=== PATIENT | female | born 1980 | race Caucasian/White ===

== ENCOUNTER 2016-06-02 15:42 | Inpatient (IN) | payer BC, OTHER ==
[~2016-06-02] VITALS: Ht 170.2 cm; Wt 80.1 kg
[~2016-06-02 15:42] MED LIST: BIRTH CONTROL PILL; BTR10SP2 NS; FERR-74 PO; HYDR-707 PO; MEDROXYPROGESTERONE; OXC10TCR PO; OXYC-202 PO; PRM25T PO; SERT20OR; SUMA100T2 PO; TPR25T PO
--- OUTSIDE RECORDS SUMMARY | 2016-06-02 15:48 | XMS REPORT | Continuity of Care Document ---
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 Medications Current Home Medications Medication Dose Units Route Directions Days/Qty Instructions Start Date Ferrous Sulfate 325 Mg 325 Mg Oral Twice A Day 01/04/16 Oxycodone Hcl/Acetaminophen 1 Each 1-2 Tab Oral Every 4HRS as needed for Pain 30 01/07/16 Past Home Medications Medication Directions Ordered Status Acetaminophen/Hydrocodone Bitart 1 Each Tablet, 1 Each Oral Q 4 - 6 Hr Prn Discontinued Promethazine Hcl 25 Mg Tablet, 1 Tab Oral Four Times Daily 04/01/09 Discontinued Sertraline Hcl 20 Mg/Ml Oral.conc., 07/28/09 Discontinued [Depo Provra] , 07/28/09 Discontinued Acetaminophen/Hydrocodone Bitart 1 Each Tablet, 1 Each Oral Q 4 - 6 Hr Prn Discontinued Promethazine Hcl 25 Mg Tablet, 1 Tab Oral Every 6 Hours 07/28/09 Discontinued Topiramate 25 Mg Tab, 50 Mg Oral Twice A Day 02/08/13 Discontinued Oxycodone Hcl (Oxycontin) 10 Mg Tab, 0.5 Tab Oral Every 6 Hours 02/08/13 Discontinued Sumatriptan Succinate 100 Mg Tablet, 0 Oral As Directed 02/08/13 Discontinued [ Control Pill] , Daily 02/08/13 Discontinued Butorphanol Tartrate 10 Mg/Ml Can, 1 [place] Nasal As Directed as needed Discontinued Social History Social History Problem Response Recorded Date/Time Alcohol Use Rarely Uses 02/08/2013 10:19am Recreational Drug Use No 02/08/2013 10:19am Recent Foreign Travel No 01/07/2016 11:05am Recent Infectious Disease Exposure No 01/07/2016 11:05am Smoking Status Never a Smoker 01/07/2016 11:05am Query Response Start Date Stop Date Smoking Status Never a Smoker Hospital Discharge Instructions Patient Instructions Physician Instructions New, Converted or Re-Newed RX: RX on Chart Patient Instructions: As directed Return to The Hospital For: As directed Discharge Diet: No Restrictions Activity as Tolerated: No Call to make follow up appt. for patient in 2 weeks. Care Plan Patient Instructions:: As directed Plan of Care Discharge Date 01/07/16 3:11pm Instructions/Education Provided ANESTHESIA INSTRUCTIONS POSTOP Dilation and Curettage (DC) Hysteroscopy (DC) Prescriptions See Medication Section Functional Status No functional status results. Allergies, Adverse Reactions, Alerts No known allergies. Immunizations No immunization records. Vital Signs Acute Vital Signs Vital Response Date/Time Temperature (Fahrenheit) 97.5 degrees F (97.6 - 99.5) 01/07/2016 2:50pm Temperature (Calculated Celsius) 36.54918 degrees C (36.4 - 37.5) 01/07/2016 2:50pm Temperature Source Temporal 01/07/2016 2:50pm Pulse Rate (adult) 96 bpm (60 - 90) 01/07/2016 2:50pm Respiratory Rate 16 bpm (12 - 24) 01/07/2016 2:50pm O2 Sat by Pulse Oximetry 99 % (88 - 100) 01/07/2016 2:50pm Blood Pressure 129/85 mm Hg 01/07/2016 2:50pm Blood Pressure Mean 102 mm Hg 01/07/2016 11:05am Pain Numeric Pain Scale 0-No Pain 01/07/2016 3:00pm Pain Intensity 0 01/07/2016 2:50pm Height (Feet) 5 feet 01/07/2016 11:05am Height (Inches) 6.00 inches 01/07/2016 11:05am Height (Calculated Centimeters) 167.559276 cm 01/07/2016 11:05am Weight (Pounds) 174 pounds 01/07/2016 11:05am Weight (Ounces) 6.3 oz 01/07/2016 11:05am Weight (Calculated Grams) 95822.675 gm 01/07/2016 11:05am Weight (Calculated Kilograms) 79.272949 kilograms 01/07/2016 11:05am Calculated BMI 28.95 01/07/2016 11:05am Capillary Refill Capillary Refill Less Than 3 Seconds 01/07/2016 11:05am Results Pending Laboratory Results Test Name Collection Date/Time Pending Microbiology Results Procedure Source Collection Date/Time Procedures Procedure Status Date Provider(s) Hysteroscopy with dilation and curettage of uterus Completed 01/07/16 TAMI BUCK MD Encounters Encounter Location Arrival/Admit Date Discharge/Depart Date Attending Provider Departed [facility] 01/07/16 10:45am 01/07/16 3:11pm TAMI BUCK MD Departed Clinic [facility] 01/04/16 11:18am 01/04/16 11: 55am TAMI BUCK MD
[2016-06-02] MEDS ORDERED: IBUP200C75 PO (16:21)
[2016-06-02] MEDS ORDERED: ACET325T38 PO (16:21)
--- NOTE | 2016-06-02 17:25 | ED GU-Female ---
General Chief Complaint: Abdominal/GI Problems Stated Complaint: ABD PAIN/VAGINAL BLEEDING Nursing Triage Note: PT REPORTS LOWER ABD CRAMPING STARTING SUNDAY. ALSO C/O VAGINAL BLEEDING. PT HAD D&C IN DECEMBER FOR SIMILAR SYMPTOMS. Nursing Sepsis Screen: No Definite Risk Source: patient, spouse Exam Limitations: no limitations History of Present Illness Time seen by provider: 17:25 Initial Comments 35 yo female patient presents to the ED with complaints of lower abdominal cramping/discomfort since Sunday. Patient reports pain and vaginal bleeding began in early April. She contacted Dr. Mueller and was given a depo- provera in April. Patient states she used only 1 pad today. Reports increased lower abdominal cramping today. Denies fever, chills, nausea, vomiting. Does c/o dysuria beginning today. Patient had similar symptoms during the summer and had a D&C by Dr. Mueller. Patient has an appointment with Dr. Brown June 12. Timing/Duration: other (chronic bleeding and lower abdominal discomfort since the beginning of April. vaginal bleeding today improved. increased supapubic pain. ) Location: suprapubic Radiation: none Activities at Onset: none Prior Genitourinary Problems: similar symptoms Modifying Factors: Worsens With Palpation, Worsens With Urinating Allergies and Home Medications Allergies Coded Allergies: No Known Drug Allergies (Verified , 10/12/08) Home Medications Acetaminophen 325 Mg Tablet 325 MG PO (Reported) Ibuprofen 200 Mg Capsule 200 MG PO (Reported) Ketorolac Tromethamine 10 Mg Tablet #15 10 MG PO TID PRN PRN PAIN Prescribed by: ROSIBEL GUERRIER on 06/04/16 1354 Constitutional: No chills, No dizziness, No fever, No malaise Respiratory: no symptoms reported Cardiovascular: no symptoms reported Gastrointestinal: abdominal painNo constipation, diarrhea (beginning this AM. )No loss of appetite, No nausea, No vomiting Genitourinary: see HPI dysuriadenies frequency, denies flank pain, denies pain : No Musculoskeletal: no symptoms reported Skin: No change in color, No lesions Psychiatric/Neurological: No Symptoms Reported Hematologic/Lymphatic: See HPI All Other Systemes Reviewed Negative Unless Noted: Yes (Negative excepted noted.) Past Avsbmsg-Roypcu-Sjbopo Hx Patient Social History Alcohol Use: Rarely Uses Recreational Drug Use: No Smoking Status: Never a Smoker Recent Foreign Travel: No Contact w/Someone Who Travel: No Recent Infectious Disease Expo: No Recent Hopitalizations: No Physical Abuse Screen: No Sexual Abuse: No Immunizations Up To Date Date of Influenza Vaccine: Mar 14, 2016 Seasonal Allergies Seasonal Allergies: Yes Surgeries HX Surgeries: Yes (FOOT SX, D&C) Surgeries: Appendectomy, Gallbladder Respiratory Hx Respiratory Disorders: No Cardiovascular Hx Cardiac Disorders: No Neurological Hx Neurological Disorders: Yes Neurological Disorders: Headaches /Migraines Reproductive System Hx Reproductive Disorders: Yes (DUB, UTERINE POLYPS) Genitourinary Hx Genitourinary Disorders: No Gastrointestinal Hx Gastrointestinal Disorders: No Musculoskeletal Hx Musculoskeletal Disorders: No Endocrine Hx Endocrine Disorders: No HEENT HX ENT Disorders: No Cancer Hx Cancer: No Psychosocial Hx Psychiatric Problems: No Integumentary HX Skin/Integumentary Disorder: No Blood Transfusions Hx Blood Disorders: Yes (ANEMIA) Reviewed Nursing Assessment Reviewed/Agree w Nursing PMH: Yes Family Medical History Significant Family History: No Pertinent Family Hx Physical Exam Vital Signs Capillary Refill : Less Than 3 Seconds General Appearance: WD/WN no apparent distress HEENT: PERRL/EOMI pharynx normal other (oral mucosa dry) Neck: supple normal inspection Cardiovascular: regular rate, rhythm no murmur Respiratory: lungs clear normal breath sounds no respiratory distress Gastrointestinal: normal bowel sounds soft no organomegalyNo distended, guarding (suprapubic)No rebound, tenderness (generalized tenderness with greatest tenderness suprapubic) Back: normal inspection no CVA tenderness Extremities: no pedal edema normal capillary refill Neurologic/Psychiatric: alert normal mood/affect oriented x 3 Skin: normal color warm/dry Progress/Results/Core Measures Results/Orders Lab Results My Orders Medications Given in ED Vital Signs/I&O Blood Pressure Mean: 98 Point of Care Testing Urine -Bedside: Negative Diagnostic Imaging Diagonstic Imaging: Ultrasound Plain Films/CT/US/NM/MRI: pelvis Comments FINDINGS: The uterus measures 8.1 x 6.3 x 5.0 cm. Increased echogenicity of the endometrial canal which measures up to 19 mm in thickness consistent with blood products. No uterine masses are identified. The right ovary measures 3.3 x 2.1 x 1.9 cm. The left ovary measures 3.8 x 2.8 x 2.1 cm. Both ovaries contain normal appearing follicles. Normal flow by color Doppler within the ovaries. There is a small amount of free fluid in the pelvis. IMPRESSION: 1. Increased echogenicity within a distended endometrial canal consistent with blood products. No uterine mass is identified. 2. Small amount of free fluid in the pelvis. Dictated on workstation # [id number] Reviewed: Reviewed by Me (radiology report reviewed by me) Departure Communication Time/Spoke to Admitting Phy: 22:[address] Mercado excepts patient to his general surgery service for IV pain control, IV fluids, and further evaluation. Requests consult of Dr. Brown Time/Spoke to Consulting Physi: 22:15 Communication/Consulting Dr. Brown notified of consult. Progress Notes Patient seen and evaluated. Laboratory findings and ultrasound findings discussed with the patient. Patient continued to have moderate to severe lower abdominal pain. Patient did require CT scan of the abdomen and pelvis. Findings were discussed with the patient as well as plan for admission to Dr. Mercado with consult with Dr. Brown. Patient voiced understanding and agreed with the treatment plan. Patient case discussed with Dr. Sheridan, she agrees with the plan of care. Impression Impression: Primary Impression: Enteritis Additional Impressions: Intractable abdominal pain Hemoperitoneum Vaginal bleeding Disposition: ADMITTED INPATIENT Condition: Stable Decision to Admit Reason: Admit from ER (General) Decision to Admit/Date: Jun 02, 2016 Time/Decision to Admit Time: 20:00 Departure-Patient Inst. Referrals: CRISTA BLOOM DO (PCP) Primary Care Physician ABBI BROWN DO Add. Discharge Instructions: All discharge instructions reviewed with patient and/or family. Voiced understanding. Scripts Ketorolac Tromethamine 10 Mg Dovetd45 Mg PO TID PRN PAIN #15 TAB Prov:ALAN MERCADO MD 06/04/16 AMARI HOPSON Jun 02, 2016 17:25 Thromboplast Time 28 24-35 SEC Alanine Aminotransferase (ALT/SGPT) 47 0-55 U/L Albumin 4.1 3.2-4.5 G/DL Alkaline Phosphatase 112 40-136 U/L Anion Gap 11 5-14 MMOL/L Aspartate Amino Transf (AST/SGOT) 42 H 5-34 U/L BUN/Creatinine Ratio 18 Band Neutrophils 5 % Basophils # (Auto) 0.0 0.0-0.1 10^3/uL Basophils % (Manual) 0 % Basophils (%) (Auto) 0 0-10 % Blood Morphology Comment NORMAL Blood Urea Nitrogen 15 7-18 MG/DL Calcium Level 9.2 8.5-10.1 MG/DL Carbon Dioxide Level 20 L 21-32 MMOL/L Chloride Level 108 H 98-107 MMOL/L Creatinine 0.84 0.60-1.30 MG/DL Eosinophils # (Auto) 0.1 0.0-0.3 10^3/uL Eosinophils % (Manual) 0 % Eosinophils (%) (Auto) 0 0-10 % Estimat Glomerular Filtration Rate > 60 Glucose Level 93 70-105 MG/DL Hematocrit 38 35-52 % Hemoglobin 13.0 11.5-16.0 G/DL INR Comment 1.1 0.8-1.4 Lymphocytes # (Auto) 1.8 1.0-4.0 X 10^3 Lymphocytes % (Manual) 7 % Lymphocytes (%) (Auto) 12 12-44 % Mean Corpuscular Hemoglobin 28 25-34 PG Mean Corpuscular Hemoglobin Concent 34 32-36 G/DL Mean Corpuscular Volume 81 80-99 FL Mean Platelet Volume 9.0 7.4-10.4 FL Monocytes # (Auto) 1.0 0.0-1.0 X 10^3 Monocytes % (Manual) 6 % Monocytes (%) (Auto) 7 0-12 % Neutrophils # (Auto) 12.0 H 1.8-7.8 X 10^3 Neutrophils % (Manual) 82 % Neutrophils (%) (Auto) 81 H 42-75 % Platelet Count 428 H 130-400 10^3/uL Potassium Level 3.5 L 3.6-5.0 MMOL/L Prothrombin Time 13.5 12.2-14.7 SEC Red Blood Count 4.66 4.35-5.85 10^6/uL Red Cell Distribution Width 14.3 10.0-14.5 % Sodium Level 139 135-145 MMOL/L TSH [place] Testing 1.28 0.35-4.94 UIU/ML Total Bilirubin 1.1 H 0.1-1.0 MG/DL Total Protein 7.8 6.4-8.2 G/DL White Blood Count 14.9 H 4.3-11.0 10^3/uL My Orders Orders-AMARI HOPSON Urine Bedside (06/02/16 16:43) Ekg Tracing (06/02/16 17:05) Cbc With Automated Diff (06/02/16 17:34) Comprehensive Metabolic Panel (06/02/16 17:34) Protime With Inr (06/02/16 17:34) Partial Thromboplastin Time (06/02/16 17:34) Thyroid Analyzer (06/02/16 17:34) Ua Culture If Indicated (06/02/16 17:34) Saline Lock/Iv-Start (06/02/16 17:34) Ketorolac Injection (Toradol Injection) (06/02/16 17:34) Ns Iv 1000 Ml (Sodium Chloride 0.9%) (06/02/16 17:34) Us Non Ob Pelvis Comp/Transvag (06/02/16 17:34) Manual Differential (06/02/16 18:50) Ct Abdomen/Pelvis W (06/02/16 20:17) Iohexol Injection (Omnipaque 350 Mg/Ml 1 (06/02/16 20:30) Ns (Ivpb) (Sodium Chloride 0.9% Ivpb Bag (06/02/16 20:30) Sodium Chloride Flush (Catheter Flush Sy (06/02/16 20:30) Morphine Injection (Morphine Injection (06/02/16 21:34) Ondansetron Injection (Zofran Injectio (06/02/16 21:45) Levofloxacin 750 Mg/150 Ml Iv (Levaquin (06/02/16 21:44) Medications Given in ED Current Medications Medications Dose Ordered Sig/Jovani Route Start Time Stop Time Status Last Admin Dose Admin Iohexol 100 ml ONCE ONCE IV 06/02/16 20:30 06/02/16 20:31 DC 06/02/16 20:36 100 ML Ondansetron HCl 4 mg ONCE ONCE IVP 06/02/16 21:45 06/02/16 21:46 DC 06/02/16 21:52 4 MG Sodium Chloride 100 ml ONCE ONCE IV 06/02/16 20:30 06/02/16 20:31 DC 06/02/16 20:36 80 ML Sodium Chloride 1,000 ml @ 0 mls/hr Q0M ONCE IV 06/02/16 17:34 06/02/16 17:36 DC 06/02/16 18:45 1,000 MLS/HR Vital Signs/I&O Vital Sign - Last 12Hours 06/02/16 06/02/16 06/02/16 06/02/16 16:17 21:44 22:49 22:55 Temp 99.2 99.2 99.2 99.1 Pulse 118 105 99 Resp 18 18 16 B/P 128/83 120/81 Pulse Ox 100 95 O2 Delivery Room Air Room Air Room Air 06/02/16 06/02/16 23:18 23:42 Pulse 100 B/P 117/82 Pulse Ox 95 O2 Delivery Room Air Room Air Blood Pressure Mean: 98 Point of Care Testing Urine -Bedside: Negative Diagnostic Imaging Diagonstic Imaging: Ultrasound Plain Films/CT/US/NM/MRI: pelvis Comments FINDINGS: The uterus measures 8.1 x 6.3 x 5.0 cm. Increased echogenicity of the endometrial canal which measures up to 19 mm in thickness consistent with blood products. No uterine masses are identified. The right ovary measures 3.3 x 2.1 x 1.9 cm. The left ovary measures 3.8 x 2.8 x 2.1 cm. Both ovaries contain normal appearing follicles. Normal flow by color Doppler within the ovaries. There is a small amount of free fluid in the pelvis. IMPRESSION: 1. Increased echogenicity within a distended endometrial canal consistent with blood products. No uterine mass is identified. 2. Small amount of free fluid in the pelvis. Dictated on workstation # [id number] Reviewed: Reviewed by Me (radiology report reviewed by me) Departure Communication Communication Dr. Mercado Communication/Consulting Dr. Brown Impression Impression: Primary Impression: Enteritis Additional Impressions: Intractable abdominal pain Hemoperitoneum Vaginal bleeding Disposition: ADMITTED INPATIENT Condition: Stable Decision to Admit Reason: Admit from ER (General) Decision to Admit/Date: Jun 02, 2016 Time/Decision to Admit Time: 20:00 Departure-Patient Inst. Referrals: CRISTA BLOOM DO (PCP) Primary Care Physician ABBI BROWN DO Add. Discharge Instructions: All discharge instructions reviewed with patient and/or family. Voiced understanding. AMARI HOPSON Jun 02, 2016 17:25
[2016-06-02] MEDS ORDERED: KETOROLAC 30 MG/ML VIAL IVP STA (17:34)
[2016-06-02] MEDS ORDERED: NS IV 1000 ML 1,000 ML IV ONE (17:34)
[2016-06-02 17:42] LABS: KETONES,URINE 1+ (NEGATIVE); LEUKOCYTE ESTERASE ,URINE 1+ (NEGATIVE); NITRITE,URINE NEGATIVE (NEGATIVE); PH,URINE 5 (5-9); PROTEIN,URINE 2+ (NEGATIVE); UROBILINOGEN,URINE 1 MG/DL (NORMAL)
[2016-06-02 18:03] LABS: BILIRUBIN,URINE NEGATIVE (NEGATIVE); WBC,URINE 0-2 /HPF
--- NOTE | 2016-06-02 18:46 | Diagnostic Imaging Report ---
EXAM: US NON OB PELVIS COMP/TRANSVAG INDICATION: Bleeding. COMPARISON: Pelvic ultrasound 09/08/2014. FINDINGS: The uterus measures 8.1 x 6.3 x 5.0 cm. Increased echogenicity of the endometrial canal which measures up to 19 mm in thickness consistent with blood products. No uterine masses are identified. The right ovary measures 3.3 x 2.1 x 1.9 cm. The left ovary measures 3.8 x 2.8 x 2.1 cm. Both ovaries contain normal appearing follicles. Normal flow by color Doppler within the ovaries. There is a small amount of free fluid in the pelvis. IMPRESSION: 1. Increased echogenicity within a distended endometrial canal consistent with blood products. No uterine mass is identified. 2. Small amount of free fluid in the pelvis. Dictated by: Dictated on workstation # [id number]
[2016-06-02 19:00] LABS: BASOPHILS % (AUTO) 0 % (0-10); EOSINOPHILS # (AUTO) 0.1 10^3/uL (0.0-0.3); EOSINOPHILS % (AUTO) 0 % (0-10); LYMPHOCYTES # (AUTO) 1.8 X 10^3 (1.0-4.0); LYMPHOCYTES % (AUTO) 12 % (12-44); MEAN CORPUSCULAR HEMOGLOBIN 28 PG (25-34); MEAN CORPUSCULAR HGB CONC 34 G/DL (32-36); MEAN CORPUSCULAR VOLUME 81 FL (80-99); MONOCYTES % (AUTO) 7 % (0-12); NEUTROPHILS % (AUTO) 81 % (42-75); PLATELET COUNT 428 10^3/uL (130-400); RED BLOOD COUNT 4.66 10^6/uL (4.35-5.85); RED CELL DISTRIBUTION WIDTH 14.3 % (10.0-14.5); WHITE BLOOD COUNT 14.9 10^3/uL (4.3-11.0)
[2016-06-02 19:10] LABS: INR 1.1 (0.8-1.4); PROTHROMBIN TIME PATIENT 13.5 SEC (12.2-14.7)
[2016-06-02 19:19] LABS: ALANINE AMINOTRANSFERASE 47 U/L (0-55); ALBUMIN 4.1 G/DL (3.2-4.5); ANION GAP 11 MMOL/L (5-14); ASPARTATE AMINO TRANSFERASE 42 U/L (5-34); BILIRUBIN,TOTAL 1.1 MG/DL (0.1-1.0); BLOOD UREA NITROGEN 15 MG/DL (7-18); BUN/CREATININE RATIO 18; CALCIUM 9.2 MG/DL (8.5-10.1); CARBON DIOXIDE 20 MMOL/L (21-32); CHLORIDE 108 MMOL/L (98-107); CREATININE SERUM 0.84 MG/DL (0.60-1.30); GFR ESTIMATED > 60; GLUCOSE 93 MG/DL (70-105); POTASSIUM 3.5 MMOL/L (3.6-5.0); SODIUM 139 MMOL/L (135-145); TOTAL PROTEIN 7.8 G/DL (6.4-8.2)
[2016-06-02 19:28] LABS: BAND NEUTROPHILS 5 %; BASOPHILS % (MANUAL) 0 %; EOSINOPHILS % (MANUAL) 0 %; LYMPHOCYTES % (MANUAL) 7 %; NEUTROPHILS % (MANUAL) 82 %
[2016-06-02] MEDS ORDERED: TRAM50TA2 PO (20:02)
[2016-06-02] MEDS ORDERED: NS 100 ML (IVPB) BAG IV ONE (20:30)
[2016-06-02] MEDS ORDERED: IOHEXOL 350 MG/ML 100 ML (OMNIPAQUE 350) VIAL IV ONE (20:30)
[2016-06-02] MEDS: CATHETER FLUSH 10 ML SYR IV PRN (20:36)
--- NOTE | 2016-06-02 21:29 | Diagnostic Imaging Report ---
PROCEDURE: CT abdomen and pelvis with contrast. TECHNIQUE: Multiple contiguous axial images were obtained through the abdomen and pelvis after administration of intravenous contrast. INDICATION: Low abdomen pain with vaginal bleeding. Diarrhea for a week. Prior history of cholecystectomy and appendectomy. EXAMINATION: CT of the abdomen and pelvis with contrast 06/02/2016 COMPARISON: 07/21/2011. I compared this to a sonogram from the same date. FINDINGS: The lung bases appear clear and the visualized osseous structures demonstrate no evidence for acute abnormalities. Within the abdomen and the pelvis, the liver shows fatty infiltration but is otherwise unremarkable. There is evidence of previous cholecystectomy. The spleen and pancreas appear unremarkable. There are clips in the right upper quadrant. The adrenal glands unremarkable. No acute process seen in either kidney. Within the midabdomen, fluid is noted within the several somewhat dilated small bowel loops. Diffuse fat stranding is seen throughout the mesentery. There is fluid throughout the ascending colon and cecum. There is diffuse wall thickening and inflammatory change about the distal ileum with a central collection of fluid like density in the midline of the pelvis with focal edema or fat stranding in the adjacent mesentery. The small bowel loops appear to surround this region of hypodensity which is not consistent with simple fluid and has Hounsfield units of 43. Similar-appearing hyperdense fluid is seen in the lower pelvis. These findings would suggest possible hemorrhage. This hemorrhage or fluid surrounds the uterus. Within the endometrial canal there is focal fluid and thickening of the endometrial stripe. Diffuse fat stranding is seen in the anterior and mid abdominal mesentery as well. An anterior abdominal wall hernia is noted which contains fat. Mild fat stranding extends into this area as well. No definite lymphadenopathy is appreciated. IMPRESSION: 1. Nonspecific inflammatory/infectious findings in the mid abdomen into the pelvis with diffuse fat stranding in the mesentery noted and inflammatory changes seen throughout the right lower quadrant. Fluid and wall thickening throughout the small bowel loops in the region also noted with fluid throughout the right colon. Clinical correlation for inflammatory or infectious etiology recommended. 2. Fluid within the pelvis and surrounding some of the bowel loops in the lower abdomen is not simple fluid and appears to represent hemorrhage. Source of the hemorrhage is unclear. Perhaps recent rupture of a cyst is a possibility. Clinical correlation and surgical consultation may be warranted. No free air is appreciated. 3. Findings within the uterus as described above correlating with the recent sonographic findings. Dictated by: Dictated on workstation # [id number]
[2016-06-02] MEDS ORDERED: morphine INJ 10 MG/ML 1ML (SYR OR VIAL) IVP STA (21:34)
[2016-06-02] MEDS ORDERED: LEVOFLOXACIN 750 MG/150 ML IV 150 ML IV STA (21:44)
[2016-06-02] MEDS ORDERED: ONDANSETRON 4 MG/2 ML (SDV) Z0FRAN IVP ONE (21:45)
[2016-06-02] MEDS ORDERED: NS W/KCL 20 MEQ/L 1,000 ML IV ONE (22:50)
[2016-06-02 22:55] VITALS: BP 120/81
[2016-06-02] MEDS ORDERED: HYDROcodone/APAP 5 MG/325 MG (LORTAB) TAB ONE (23:17)
[2016-06-02 23:18] VITALS: BP 117/82
[2016-06-02] MEDS: HYDROcodone/APAP 5 MG/325 MG (LORTAB) TAB PO PRN (23:30)
[2016-06-02] MEDS: NS W/KCL 20 MEQ/L 1,000 ML IV SCH (23:30)
[2016-06-02] MEDS ORDERED: PROMETHAZINE INJ 25 MG/ML (PHENERGAN) AMP IV PRN (23:45)
[2016-06-02] MEDS: FAMOTIDINE 20MG/2ML IV (PEPCID) IVP SCH (23:59)
[2016-06-03] MEDS: metroNIDAZOLE 500 MG/100 ML IVPB (PRE-MIX) IV SCH ×4 (00:01→21:58)
[2016-06-03] MEDS: CIPROFLOXACIN 400 MG/D5W 200 ML (PRE-MIX) IV SCH ×3 (00:01→23:04)
[2016-06-03 04:00] VITALS: BP 111/45
[2016-06-03] MEDS: HYDROcodone/APAP 5 MG/325 MG (LORTAB) TAB PO PRN ×3 (04:34→19:47)
[2016-06-03] MEDS: morphine INJ 4 MG/ML 1 ML (VIAL/SYRINGE) IV PRN ×3 (04:34→19:46)
[2016-06-03] MEDS: ONDANSETRON 4 MG/2 ML (SDV) Z0FRAN IV PRN ×2 (04:39→19:53)
[2016-06-03 05:39] LABS: BASOPHILS % (AUTO) 0 % (0-10); EOSINOPHILS # (AUTO) 0.1 10^3/uL (0.0-0.3); EOSINOPHILS % (AUTO) 1 % (0-10); LYMPHOCYTES # (AUTO) 1.3 X 10^3 (1.0-4.0); LYMPHOCYTES % (AUTO) 15 % (12-44); MEAN CORPUSCULAR HEMOGLOBIN 28 PG (25-34); MEAN CORPUSCULAR HGB CONC 34 G/DL (32-36); MEAN CORPUSCULAR VOLUME 82 FL (80-99); MEAN PLATELET VOLUME 9.3 FL (7.4-10.4); MONOCYTES # (AUTO) 0.7 X 10^3 (0.0-1.0); MONOCYTES % (AUTO) 8 % (0-12); NEUTROPHILS # (AUTO) 6.8 X 10^3 (1.8-7.8); NEUTROPHILS % (AUTO) 77 % (42-75); PLATELET COUNT 344 10^3/uL (130-400); RED BLOOD COUNT 4.35 10^6/uL (4.35-5.85); RED CELL DISTRIBUTION WIDTH 14.3 % (10.0-14.5); WHITE BLOOD COUNT 8.9 10^3/uL (4.3-11.0)
[2016-06-03 05:58] LABS: ALANINE AMINOTRANSFERASE 61 U/L (0-55); ALBUMIN 3.4 G/DL (3.2-4.5); ANION GAP 8 MMOL/L (5-14); ASPARTATE AMINO TRANSFERASE 68 U/L (5-34); BILIRUBIN,TOTAL 1.6 MG/DL (0.1-1.0); BLOOD UREA NITROGEN 8 MG/DL (7-18); BUN/CREATININE RATIO 11; CALCIUM 8.4 MG/DL (8.5-10.1); CARBON DIOXIDE 17 MMOL/L (21-32); CHLORIDE 114 MMOL/L (98-107); CREATININE SERUM 0.71 MG/DL (0.60-1.30); GFR ESTIMATED > 60; GLUCOSE 97 MG/DL (70-105); POTASSIUM 4.1 MMOL/L (3.6-5.0); SODIUM 139 MMOL/L (135-145); TOTAL PROTEIN 6.7 G/DL (6.4-8.2)
[2016-06-03] MEDS: NS W/KCL 20 MEQ/L 1,000 ML IV SCH (07:43)
[2016-06-03 07:45] VITALS: BP 117/73
[2016-06-03 08:00] VITALS: BP 117/73
--- NOTE | 2016-06-03 08:33 | Consultation ---
History of Present Illness History of Present Illness Patient Consulted On(matt/time) 06/03/16 08:28 Date of Admission 06/02/16 Reason for Visit: Acute onset pelvic pain History of Present Illness This 35-year-old female was admitted last evening by Dr. Carrillo for abnormal findings on CT as well as acute onset lower abdominal pain. This patient was found to have a change in bowel habits and more frequent loose stools, and an acute onset pain which started yesterday. I was consult to due to the abnormal finding of possible blood in the pelvis surrounding the uterus, as well as endometrial thickening. The patient reports having menstrual irregularities for the past 4-5 years, she was seen Dr. Pugh however did ended up seeing Dr. Mueller in undergoing a D&C last summer which improved her bleeding problems for approximately 3-4 months however the acutely returned as well as his dull suprapubic pain which has been continuous since. The patient reports that the pain has been slowly exacerbating over the past 6 months, she typically takes kuhj-rit-dwlzpjn pain medications including Tylenol and ibuprofen to help her deal with the pain. However, last night the pain became acutely much more uncomfortable to the point that she was not able to ambulate. The patient reports feeling somewhat better this morning however continuing to have this suprapubic pain and continuing to have difficulty ambulating due to the pain however she is able to ambulate. Nursing reports an improvement in her status since admission Allergies and Home Medications Allergies Coded Allergies: No Known Drug Allergies (Verified , 10/12/08) Home Medications Acetaminophen 325 Mg Tablet 325 MG PO (Reported) Ibuprofen 200 Mg Capsule 200 MG PO (Reported) Past Oskbnep-Hoydkh-Fwmqyn Hx Patient Social History Alcohol Use: Rarely Uses Recreational Drug Use: No Smoking Status: Never a Smoker Recent Foreign Travel: No Contact w/Someone Who Travel: No Recent Infectious Disease Expo: No Recent Hopitalizations: Yes (D/C IN DECEMBER 2015) Physical Abuse Screen: No Sexual Abuse: No Immunizations Up To Date Date of Influenza Vaccine: Mar 14, 2016 Seasonal Allergies Seasonal Allergies: Yes Surgeries HX Surgeries: Yes (FOOT SX, D&C) Surgeries: Appendectomy, Gallbladder Respiratory Hx Respiratory Disorders: No Cardiovascular Hx Cardiac Disorders: No Neurological Hx Neurological Disorders: Yes Neurological Disorders: Headaches /Migraines Reproductive System : No Hx Reproductive Disorders: Yes (DUB, UTERINE POLYPS) Genitourinary Hx Genitourinary Disorders: No Gastrointestinal Hx Gastrointestinal Disorders: No Gastrointestinal Disorders: Gastroesophageal Reflux Musculoskeletal Hx Musculoskeletal Disorders: No Endocrine Hx Endocrine Disorders: No HEENT HX ENT Disorders: No Cancer Hx Cancer: No Psychosocial Hx Psychiatric Problems: No Integumentary HX Skin/Integumentary Disorder: No Blood Transfusions Hx Blood Disorders: Yes (ANEMIA) Reviewed Nursing Assessment Reviewed/Agree w Nursing PMH: Yes Family Medical History Significant Family History: No Pertinent Family Hx Review of Systems-General Constitutional: No diaphoresis, No malaise EENTM: see HPI Respiratory: see HPI Cardiovascular: see HPI Gastrointestinal: abdominal pain (RUQ) other (superpubic) Genitourinary: no symptoms reported Skin: no symptoms reported see HPI Psychiatric/Neurological: No Symptoms Reported All Other Systems Reviewed Negative Unless Noted: Yes Physical Exam-General Problems Physical Exam Vital Signs Vital Sign - Last 12Hours 06/02/16 06/02/16 16:17 22:49 Temp 99.2 Pulse 118 Resp 18 B/P 128/83 Pulse Ox 100 O2 Delivery Room Air Capillary Refill : Less Than 3 Seconds General Appearance: mild distress HEENT: PERRL/EOMI normal ENT inspection Peripheral Pulses: 2+ Carotid (R), 2+ Carotid (L), 2+ Femoral (R), 2+ Femoral ( L), 2+ Dorsalis Pedis (R), 2+ Left Dors-Pedis (L), 2+ Radial Pulses (R), 2+ Radial Pulses (L) Gastrointestinal: other (there is diffuse tenderness, which is localized and exacerbated in the suprapubic and right lower quadrant region. Mild distention. No guarding. Very mild rebound tenderness. Abdomen is soft.) Rectal: deferred Genital/Rectal: other (speculum exam deferred at patient request due to tenderness, gonorrhea chlamydia testing will be performed on urine.) Neurologic/Psychiatric: finish sander II-XII nml as tested oriented x 3 Skin: normal color Lymphatic: no adenopathy Assessment/Plan Assessment/Plan Admission Diagnosis/Plan Diagnosis: 35-year-old female with abnormal uterine bleeding Endometrial thickening nonspecific on ultrasound Pelvic free fluid suspicious for acute hemorrhage Acute onset lower abdominal pain Diarrhea Plan: I am ordering a quantitative beta hCG as I do not see any records in the emergency department of testing. The patient does describe monogamy and denies any concerns for sexually transmitted diseases however today I am ordering urine gonorrhea and chlamydia testing, due to the fact she is deferring pelvic exam due to discomfort. I discussed the patient today continuing more conservative measures including IV fluid management and antibiotics, due to improvement in her status, clinically stable vital signs/exam and the patient reports having a slight improvement in her status I would like to proceed this way at least today. If there is no improvement in her status by this evening or tomorrow morning we did briefly discuss the possibility of proceeding with diagnostic laparoscopy. However, due to this being a more aggressive approach at this point the patient was agreeable with my plan going forward more conservatively. Please contact me there is any questions about planning care as I'll be happy to assist. Clinical Quality Measures DVT/VTE Risk/Contraindication: Risk Factor Score Per Nursin RFS Level Per Nursing on Admit: 1=Low/No VTE PPX ABBI ALY DO Jun 03, 2016 08:33
[2016-06-03] MEDS: FAMOTIDINE 20MG/2ML IV (PEPCID) IVP SCH ×2 (08:43→19:49)
[2016-06-03] MEDS ORDERED: D5 1/2 NS W/KCL 20 MEQ/L 1,000 ML IV ONE (10:14)
[2016-06-03 12:00] VITALS: BP 125/79
[2016-06-03 16:06] VITALS: BP 109/74
[2016-06-03 19:04] VITALS: BP 123/79
[2016-06-03] MEDS: D5 1/2 NS W/KCL 20 MEQ/L 1,000 ML IV SCH ×2 (19:53→21:59)
--- NOTE | 2016-06-03 21:46 | HISTORY AND PHYSICAL ---
DATE OF ADMISSION: 06/02/2016 DIAGNOSES: 1. Abdominal pain. 2. Diarrhea. 3. Dysfunctional uterine bleeding. For the past 5 days, this lady has developed central abdominal pain associated with watery diarrhea. Due to increased severity of her symptoms, she presented to the emergency room. CT scan shows thickening of the distal small bowel and the right colon along with stranding of the mesentery. The exact significance of this finding is unclear. In addition, she also has minimal fluid in the pelvis of unknown significance. PAST SURGICAL HISTORY: 1. Laparoscopic cholecystectomy for gallstones. 2. Dilatation and curettage to address dysfunctional uterine bleeding. 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 FAMILY HISTORY: Noncontributory. REVIEW OF SYSTEMS: NEURO: Denies any headache. CARDIAC: No angina or palpitations. RESPIRATORY: No cough or shortness of breath. GI: Abdominal pain and diarrhea. : Vaginal bleeding. PHYSICAL EXAMINATION: She appears to be reasonably comfortable. HEENT: Her neck is supple and there is no jugular venous distention. Trachea is midline. RESPIRATORY: Lungs are clear to auscultation. CARDIAC: Both heart tones are heard. No murmur. ABDOMEN: Soft with minimal tenderness over the periumbilical region. LABORATORY DATA: Her white cell count was elevated at 14,000 during the ER visit. This has since decreased to 8.9. Her liver enzymes are elevated with bilirubin of 1.6. The exact significance of this finding is unclear. ASSESSMENT: This is a lady with abdominal pain and diarrhea, thickened small bowel, stranding of the mesentery, dysfunctional uterine bleeding. DIFFERENTIAL DIAGNOSIS: 1. Crohn's disease. 2. Nonspecific enteritis. With regard to her uterine bleeding, Dr. Brown has evaluated her and his recommendations will be followed. With regard to her GI symptoms, at this point we will continue conservative therapy and advance her diet slowly. It is likely that she will require either a small bowel contrast study or colonoscopy as an outpatient. Job ID: [id number] Dictated Date: 06/03/2016 10:57:05 Bedspread Cutter Hand Date: 06/03/2016 21:37:27/opal CRUZ
[2016-06-04] VITALS: BP 106/71
[2016-06-04] MEDS: HYDROcodone/APAP 5 MG/325 MG (LORTAB) TAB PO PRN (05:09)
[2016-06-04] MEDS: metroNIDAZOLE 500 MG/100 ML IVPB (PRE-MIX) IV SCH (07:23)
[2016-06-04] MEDS: D5 1/2 NS W/KCL 20 MEQ/L 1,000 ML IV SCH (07:23)
[2016-06-04 08:00] VITALS: BP 126/77
[2016-06-04] MEDS: FAMOTIDINE 20MG/2ML IV (PEPCID) IVP SCH (08:11)
[2016-06-04] MEDS: CATHETER FLUSH 10 ML SYR IV PRN (08:11)
--- NOTE | 2016-06-04 08:29 | Progress Note-Standard ---
Standard Progress Note Progress Notes/Assess & Plan Progress/Assessment & Plan Patient continues to progress as expected. Reports not yet having a BM. Light vaginal bleeding. Reports continued pain and has been sleeping most of her admission due to pain meds. Vital Sign - Last 12Hours 06/04/16 00:00 Temp 98.8 Pulse 78 Resp 20 B/P 106/71 Pulse Ox 98 O2 Delivery Room Air Intake and Output 06/03/16 23:59 Intake Total 2432 ml Output Total 800 ml Balance 1632 ml Laboratory Tests 06/02/16 17:02: Urine Bacteria NONE, Urine Bilirubin NEGATIVE, Urine Casts NONE, Urine Clarity SLIGHTLY CLOUDY, Urine Color YELLOW, Urine Crystals NONE, Urine Culture Indicated NO, Urine Glucose (UA) NEGATIVE, Urine Ketones 1+H, Urine Leukocyte Esterase 1+H, Urine Mucus SMALLH, Urine Nitrite NEGATIVE, Urine Protein 2+H, Urine RBC .100, Urine RBC (Auto) 5+H, Urine Specific Majestic 1.025H, Urine Squamous Epithelial Cells 2-5, Urine Urobilinogen 1, Urine WBC 0-2, Urine pH 5 06/02/16 18:50: Activated Partial Thromboplast Time 28, Alanine Aminotransferase (ALT/SGPT) 47, Albumin 4.1, Alkaline Phosphatase 112, Anion Gap 11, Aspartate Amino Transf (AST /SGOT) 42H, BUN/Creatinine Ratio 18, Band Neutrophils 5, Basophils # (Auto) 0.0 , Basophils % (Manual) 0, Basophils (%) (Auto) 0, Blood Morphology Comment NORMAL, Blood Urea Nitrogen 15, Calcium Level 9.2, Carbon Dioxide Level 20L, Chloride Level 108H, Creatinine 0.84, Eosinophils # (Auto) 0.1, Eosinophils % ( Manual) 0, Eosinophils (%) (Auto) 0, Estimat Glomerular Filtration Rate > 60, Glucose Level 93, Hematocrit 38, Hemoglobin 13.0, INR Comment 1.1, Lymphocytes # (Auto) 1.8, Lymphocytes % (Manual) 7, Lymphocytes (%) (Auto) 12, Mean Corpuscular Hemoglobin 28, Mean Corpuscular Hemoglobin Concent 34, Mean Corpuscular Volume 81, Mean Platelet Volume 9.0, Monocytes # (Auto) 1.0, Monocytes % (Manual) 6, Monocytes (%) (Auto) 7, Neutrophils # (Auto) 12.0H, Neutrophils % (Manual) 82, Neutrophils (%) (Auto) 81H, Platelet Count 428H, Potassium Level 3.5L, Prothrombin Time 13.5, Red Blood Count 4.66, Red Cell Distribution Width 14.3, Sodium Level 139, TSH [place] Testing 1.28, Total Bilirubin 1.1H, Total Protein 7.8, White Blood Count 14.9H 06/03/16 05:10: Alanine Aminotransferase (ALT/SGPT) 61H, Albumin 3.4, Alkaline Phosphatase 108, Anion Gap 8, Aspartate Amino Transf (AST/SGOT) 68H, BUN/Creatinine Ratio 11, Basophils # (Auto) 0.0, Basophils (%) (Auto) 0, Blood Urea Nitrogen 8, Calcium Level 8.4L, Carbon Dioxide Level 17L, Chloride Level 114H, Creatinine 0.71, Eosinophils # (Auto) 0.1, Eosinophils (%) (Auto) 1, Estimat Glomerular Filtration Rate > 60, Glucose Level 97, Hematocrit 36, Hemoglobin 12.0, Lymphocytes # (Auto) 1.3, Lymphocytes (%) (Auto) 15, Mean Corpuscular Hemoglobin 28, Mean Corpuscular Hemoglobin Concent 34, Mean Corpuscular Volume 82, Mean Platelet Volume 9.3, Monocytes # (Auto) 0.7, Monocytes (%) (Auto) 8, Neutrophils # (Auto) 6.8, Neutrophils (%) (Auto) 77H, Platelet Count 344, Potassium Level 4.1, Red Blood Count 4.35, Red Cell Distribution Width 14.3, Sodium Level 139, Total Bilirubin 1.6H, Total Protein 6.7, White Blood Count 8.9 , C-Reactive Protein High Sensitivity 18.54H, Erythrocyte Sedimentation Rate 56H , Human Chorionic Gonadotropin, Quant < 5 Abd: no change from yesterdays exam Diagnosis: Continued irregular bleeding- GC pending Diffuse abdominal pain P: Consider starting toradol to reduce inflammatory process, was holding off to see if patient would be operative candidate, at this point I have no plans on taking patient to OR. Encourage ambulation Advance diet per Surgery, management per surgery and will continue to follow. ABBI ALY DO Jun 04, 2016 08:29
[2016-06-04] MEDS: KETOROLAC 15 MG/ML VIAL IVP PRN ×2 (08:48→14:16)
[2016-06-04] MEDS: CIPROFLOXACIN 400 MG/D5W 200 ML (PRE-MIX) IV SCH (11:32)
[2016-06-04] MEDS ORDERED: KETO10TA PO (13:54)
--- NOTE | 2016-06-04 14:03 | Progress Note (SOAP) ---
Subjective Subjective/Events-last exam Diarrhea resolved and abdominal pain improved. Vaginal bleeding continues Review of Systems General: No Chills, No Night Sweats, No Fatigue, No Malaise HEENT: No Head Aches, No Eye Pain, No Ear Pain, No Dysphasia, No Sinus Congestion, No Post Nasal Drip, No Sore Throat Pulmonary: No Dyspnea, No Cough, No Pleuritic Chest Pain Cardiovascular: No: Chest Pain, Edema, Lt Headedness, Orthopnea, Palpitations, Paroxysmal Noc. Dyspnea Gastrointestinal: No: Abdominal Pain, Constipation, Diarrhea, Hematochezia, Melena, Nausea, Vomiting Genitourinary: Other Musculoskeletal: No: arm pain, back pain, foot pain, hand pain, leg pain, neck pain, other, shoulder pain Neurological: No: Change in speech, Confusion, Incoordination, Numbness, Other , Seizures, Weakness Objective Exam Vital Signs Date Time Temp Pulse Resp B/P Pulse Ox O2 Delivery O2 Flow Rate FiO2 06/04/16 08:00 99.0 80 18 126/77 97 Room Air 06/04/16 00:00 98.8 78 20 106/71 98 Room Air 06/03/16 19:04 98.8 76 16 123/79 93 06/03/16 16:06 98.7 78 14 109/74 97 I & O 06/04/16 07:00 Intake Total 2782 ml Output Total 800 ml Balance 1982 ml Capillary Refill : Less Than 3 Seconds General Appearance: No Apparent Distress HEENT: PERRL/EOMI Neck: Normal Inspection Cardiovascular: Regular Rate, Rhythm Gastrointestinal: non tender soft Extremity: Normal Capillary Refill Neurologic/Psychiatric: Alert Oriented x3 Skin: Normal Color Warm/Dry Assessment/Plan Assessment/Plan Assess & Plan/Chief Complaint Lower abdominal pain and diarrhea. Thickened TI and R colon. Needs outpatient colonoscopy and small bowel follow through. Could be discharged today Diagnosis/Problems: Final Diagnosis Lower abdominal pain and diarrhea. Dysfunctional Uterine Bleeding Clinical Quality Measures DVT/VTE Risk/Contraindication: Risk Factor Score Per Nursin RFS Level Per Nursing on Admit: 1=Low/No VTE PPX ALAN MERCADO MD Jun 04, 2016 2:03 pm
--- NOTE | 2016-06-04 21:20 | DISCHARGE SUMMARY ---
DATE OF ADMISSION: 06/02/2016 DATE OF DISCHARGE: 06/04/2016 DIAGNOSES: 1. Lower abdominal pain. 2. Diarrhea. 3. Abnormal CT scan with thickening of the distal small bowel and right colon. 4. Dysfunction uterine bleeding. This lady was admitted with the symptoms mentioned above and was found to have thickening of the distal small bowel and the right colon on CT scan. Symptoms have improved with supportive therapy, and outpatient evaluation will be established. With regard to dysfunctional uterine bleeding, she will follow-up with Dr. Brown. She will be discharged on oral Toradol for pain medicine and a short-term follow-up. Job ID: [id number] Dictated Date: 06/04/2016 14:04:23 Jacker Date: 06/04/2016 21:17:44/opal CRUZ
[2016-06-06 07:44] LABS: NEISSERIA GONORRHEA DNA URINE Negative (Negative)
--- NOTE | 2016-06-07 13:30 | Physician Query-General Query ---
Physician Query-General Query to Physician: What is the underlying cause of the lower abdominal pain and diarrhea? PHYSICIAN RESPONSE: Based on the clinical findings in the record, please respond to the query above on this document as an addendum. Possible, probable, or questionable diagnosis can be coded for INPATIENTS ONLY. Physician Response: Physician Response Unknown at this pont If you have questions please contact: Graphics Edit Technician: Kike Ext: [phone] Thank you for your time and cooperation. Clinical Irrigator Gravity Flow/Graphics Edit Technician This is a permanent part of the medical record KIKE HUBER Jun 07, 2016 13:30 ALAN MERCADO MD Jun 08, 2016 11:36
[2016-06-08 11:46] LABS: CHLAMYDIA DNA URINE Negative (Negative)
== END 2016-06-04 14:45 | disposition home or self-care (01) | DRG 392 ==
LOC: EDUNIT# 15:42 → ER 15:44 → 4TH 22:32
PROVIDERS: ADMIT Surgery; ATTEND Family Medicine
DX: R10.2 Pelvic and perineal pain (principal); R19.7 Diarrhea, unspecified; K63.9 Disease of intestine, unspecified; N93.8 Other specified abnormal uterine and vaginal bleeding
CPT/HCPCS: 36415; 74177; 76830; 76856; 80053; 81000; 84443; 84702; 84703; 85007; 85025; 85027; 85610; 85652; 85730; 86141; 87491; 87591; 96361; 96365; 96375

== ENCOUNTER 2016-06-15 05:42 | Outpatient (CLI) | payer BC ==
[~2016-06-15] VITALS: Ht 170.2 cm; Wt 79.8 kg
[~2016-06-15 05:42] MED LIST changes: +ACET325T38 PO; +IBUP200C75 PO; +KETO10TA PO; +TRAM50TA2 PO
--- OUTSIDE RECORDS SUMMARY | 2016-06-15 05:44 | XMS REPORT | Continuity of Care Document ---
Author Author [facility] Organization [facility] Address Unknown Phone Unavailable Care Team Providers Care Internal Medicine Nurse Practitioner Name Role Phone CRISTA BLOOM DO PCP Insurance Providers Payer Name Policy Number Subscriber Name Relationship [facility] [id number] Chester Fajardo 18 Self / Same As [...] Discontinued Butorphanol Tartrate 10 Mg/Ml Can, 1 [place] Nasal As Directed as needed Discontinued Social [...] - 99.5) 01/07/2016 2:50pm Temperature (Calculated Celsius) 36.35547 degrees C (36.4 - 37.5) 01/07/2016 2:50pm [...] 6.00 inches 01/07/2016 11:05am Height (Calculated Centimeters) 167.826726 cm 01/07/2016 11:05am Weight (Pounds) 174 pounds 01/07/2016 11:05am Weight (Ounces) 6.3 oz 01/07/2016 11:05am Weight (Calculated Grams) 89935.675 gm 01/07/2016 11:05am Weight (Calculated Kilograms) 79.769344 kilograms 01/07/2016 11:05am Calculated BMI 28.95 01/07/2016 [...] Attending Provider Departed [facility] 01/07/16 10:45am 01/07/16 3:11pm TAMI BUCK MD Departed Clinic [facility] 01/04/16 11:18am 01/04/16 11: 55am TAMI BUCK MD
[2016-06-15] MEDS ORDERED: FERR-84 PO (13:21)
[2016-06-15] MEDS ORDERED: LORA10TA7 PO (13:21)
== END 2016-06-15 13:22 ==
LOC: PREOP 05:42
PROVIDERS: ATTEND Surgery
DX: Z01.818 Encounter for other preprocedural examination (principal)

== ENCOUNTER 2016-06-19 08:04 | Day surgery (SDC) | payer BC, OTHER ==
[~2016-06-19] VITALS: Ht 170.2 cm; Wt 79.8 kg
[~2016-06-19 08:04] MED LIST changes: +FERR-84 PO; +LORA10TA7 PO
--- OUTSIDE RECORDS SUMMARY | 2016-06-19 08:09 | XMS REPORT | Continuity of Care Document ---
Author Author [facility] Organization [facility] Address Unknown Phone Unavailable Care Team Providers Care Asbestos Shingle Inspector Name Role Phone CRISTA BLOOM DO PCP Insurance Providers Payer Name Policy Number Subscriber Name Relationship [facility] [id number] Chester Fajardo Self / Same As Patient Advance Directives Directive Response Recorded Date/Time Advance Directives No 06/15/16 1:18pm Health Care Power of Rack Pusher No 06/15/16 1:18pm Organ Donor Yes 06/15/16 1:18pm Resuscitation Status Full Code 06/15/16 1:18pm Problems Active Problems Medical Problem Onset Date Status Abdominal pain Unknown Acute Vagina bleeding Unknown Acute Medications Current Home Medications Medication Dose Units Route Directions Days/Qty Instructions Start Date Ferrous Sulfate 325 Mg 325 Mg Oral Twice A Day 06/15/16 Loratadine 10 Mg 10 Mg Oral Daily 06/15/16 Past Home Medications Medication Directions Ordered Status [...] Discontinued Butorphanol Tartrate 10 Mg/Ml Can, 1 [place] Nasal As Directed as needed Discontinued Ferrous Sulfate 325 Mg Tablet, 325 Mg Oral Twice A Day 01/04/16 Discontinued Oxycodone Hcl/Acetaminophen 1 Each Tablet, 1-2 Tab Oral Every 4HRS as needed for Pain 01/07/16 Discontinued Acetaminophen 325 Mg Tablet, 325 Mg Oral 06/02/16 Discontinued Ibuprofen 200 Mg Capsule, 200 Mg Oral 06/02/16 Discontinued Tramadol Hcl 50 Mg Tablet, 50 Mg Oral Every 4HRS as needed for Pain 06/02/16 Discontinued Ketorolac Tromethamine 10 Mg Tablet, 10 Mg Oral Three Times A Day as needed for Pain 06/04/16 Discontinued Social History Social History Problem Response Recorded Date/Time Alcohol Use Rarely Uses 02/08/2013 10:19am Recreational Drug Use No 02/08/2013 10:19am Recent Foreign Travel No 06/15/2016 1:18pm Recent Infectious Disease Exposure No 06/15/2016 1:18pm Smoking Status Never a Smoker 06/15/2016 1:18pm Recent Hopitalizations No 06/15/2016 1:18pm Query Response Start Date Stop Date Smoking Status Never a Smoker Hospital Discharge Instructions No hospital discharge instructions. Plan of Care Discharge Date 06/15/16 1:22pm Prescriptions See Medication Section Functional Status No functional status results. Allergies, Adverse Reactions, Alerts No known allergies. Immunizations No immunization records. Vital Signs Acute Vital Signs Vital Response Date/Time Temperature (Fahrenheit) 99.0 degrees F (97.6 - 99.5) 06/04/2016 8:00am Temperature (Calculated Celsius) 37.88217 degrees C (36.4 - 37.5) 06/04/2016 8:00am Temperature Source Tympanic 06/04/2016 8:00am Pulse Rate (adult) 80 bpm (60 - 90) 06/04/2016 8:00am Respiratory Rate 18 bpm (12 - 24) 06/04/2016 8:00am O2 Sat by Pulse Oximetry 97 % (88 - 100) 06/04/2016 8:00am Blood Pressure 126/77 mm Hg 06/04/2016 8:00am Blood Pressure Mean 93 mm Hg 06/04/2016 8:00am Pain Numeric Pain Scale 5-Moderate Pain 06/04/2016 2:16pm Height (Feet) 5 feet 06/15/2016 1:17pm Height (Inches) 7.00 inches 06/15/2016 1:17pm Height (Calculated Centimeters) 170.960698 cm 06/15/2016 1:17pm Weight (Pounds) 176 pounds 06/15/2016 1:17pm Weight (Ounces) 0.0 oz 06/15/2016 1:17pm Weight (Calculated Grams) 75327.26 gm 06/15/2016 1:17pm Weight (Calculated Kilograms) 79.499164 kilograms 06/15/2016 1:17pm Calculated BMI 27.6 06/15/2016 1:17pm Capillary Refill Capillary Refill Less Than 3 Seconds 06/02/2016 4:17pm Results Laboratory Results Test Name Result Units Flags Reference Collection Date/Time Result Date/ Time Comments White Blood Count 8.9 10^3/uL 4.3-11.0 06/03/2016 5:10am 06/03/2016 5: 39am Red Blood Count 4.35 10^6/uL 4.35-5.85 06/03/2016 5:10am 06/03/2016 5: 39am Hemoglobin 12.0 G/DL 11.5-16.0 06/03/2016 5:10am 06/03/2016 5:39am Hematocrit 36 % 35-52 06/03/2016 5:10am 06/03/2016 5:39am Mean Corpuscular Volume 82 FL 80-99 06/03/2016 5:10am 06/03/2016 5: 39am Mean Corpuscular Hemoglobin 28 PG 25-34 06/03/2016 5:10am 06/03/2016 5: 39am Mean Corpuscular Hemoglobin Concent 34 G/DL 32-36 06/03/2016 5:10am 5:39am Red Cell Distribution Width 14.3 % 10.0-14.5 06/03/2016 5:10am 2016 5:39am Platelet Count 344 10^3/uL 130-400 06/03/2016 5:06/03/2016 5:39am Mean Platelet Volume 9.3 FL 7.4-10.4 06/03/2016 5:06/03/2016 5: 39am Neutrophils (%) (Auto) 77 % H 42-75 06/03/2016 5:06/03/2016 5:39am Lymphocytes (%) (Auto) 15 % 12-44 06/03/2016 5:06/03/2016 5:39am Monocytes (%) (Auto) 8 % 0-12 06/03/2016 5:06/03/2016 5:39am Eosinophils (%) (Auto) 1 % 0-10 06/03/2016 5:06/03/2016 5:39am Basophils (%) (Auto) 0 % 0-10 06/03/2016 5:06/03/2016 5:39am Neutrophils # (Auto) 6.8 X 10^3 1.8-7.8 06/03/2016 5:06/03/2016 5: 39am Lymphocytes # (Auto) 1.3 X 10^3 1.0-4.0 06/03/2016 5:06/03/2016 5: 39am Monocytes # (Auto) 0.7 X 10^3 0.0-1.0 06/03/2016 5:06/03/2016 5: 39am Eosinophils # (Auto) 0.1 10^3/uL 0.0-0.3 06/03/2016 5:06/03/2016 5 :39am Basophils # (Auto) 0.0 10^3/uL 0.0-0.1 06/03/2016 5:06/03/2016 5: 39am Neutrophils % (Manual) 82 % 06/02/2016 6:50pm 06/02/2016 7:28pm Band Neutrophils 5 % 06/02/2016 6:50pm 06/02/2016 7:28pm Lymphocytes % (Manual) 7 % 06/02/2016 6:50pm 06/02/2016 7:28pm Monocytes % (Manual) 6 % 06/02/2016 6:50pm 06/02/2016 7:28pm Eosinophils % (Manual) 0 % 06/02/2016 6:50pm 06/02/2016 7:28pm Basophils % (Manual) 0 % 06/02/2016 6:50pm 06/02/2016 7:28pm Blood Morphology Comment NORMAL 06/02/2016 6:50pm 06/02/2016 7: 28pm Erythrocyte Sedimentation Rate 56 MM/HR H 0-20 06/03/2016 5:10am 2016 11:29am Prothrombin Time 13.5 SEC 12.2-14.7 06/02/2016 6:50pm 06/02/2016 7: 10pm INR Comment 1.1 0.8-1.4 06/02/2016 6:50pm 06/02/2016 7:10pm INTERPRETIVE DATA SUGGESTED THERAPEUTIC RANGE FOR INR'S: VENOUS THROMBOSIS, PULMONARY EMBOLISM, OR PREVENTION OF SYSTEMIC EMBOLISM (EG. IN ATRIAL FIBRILLATION): 2.0 - 3.0 MECHANICAL PROSTHETIC HEART VALVES: 2.5 - 3.5* *NOTE: INR'S UP TO 4.5 MAY BE NECESSARY IN SELECTED GROUPS OF HIGH RISK PATIENTS. SIXTH [place] [employer] OF CHEST PH[employer]IANS CONSENSUS CONFERENCE ON ANTITHROMBOTIC THERAPY (2000). Activated Partial Thromboplast Time 28 SEC 24-35 06/02/2016 6:50pm 7:11pm Urine Color YELLOW 06/02/2016 5:02pm 06/02/2016 6:04pm Urine Clarity SLIGHTLY CLOUDY 06/02/2016 5:02pm 06/02/2016 6:04pm Urine pH 5 5-9 06/02/2016 5:02pm 06/02/2016 6:04pm Urine Specific [place] 1.025 * 1.016-1.022 06/02/2016 5:02pm 2016 6:04pm Urine Protein 2+ * NEGATIVE 06/02/2016 5:02pm 06/02/2016 6:04pm Urine Glucose (UA) NEGATIVE NEGATIVE 06/02/2016 5:02pm 06/02/2016 6: 04pm Urine RBC (Auto) 5+ * NEGATIVE 06/02/2016 5:02pm 06/02/2016 6:04pm Urine Ketones 1+ * NEGATIVE 06/02/2016 5:02pm 06/02/2016 6:04pm Urine Nitrite NEGATIVE NEGATIVE 06/02/2016 5:02pm 06/02/2016 6:04pm Urine Bilirubin NEGATIVE NEGATIVE 06/02/2016 5:02pm 06/02/2016 6: 04pm Urine Urobilinogen 1 MG/DL NORMAL 06/02/2016 5:02pm 06/02/2016 6:04pm Urine Leukocyte Esterase 1+ * NEGATIVE 06/02/2016 5:02pm 06/02/2016 6: 04pm Urine RBC .100 /HPF 06/02/2016 5:02pm 06/02/2016 6:04pm Urine WBC 0-2 /HPF 06/02/2016 5:02pm 06/02/2016 6:04pm Urine Bacteria NONE /HPF 06/02/2016 5:02pm 06/02/2016 6:04pm Urine Squamous Epithelial Cells 2-5 /HPF 06/02/2016 5:02pm 2016 6:04pm Urine Crystals NONE /LPF 06/02/2016 5:02pm 06/02/2016 6:04pm Urine Casts NONE /LPF 06/02/2016 5:02pm 06/02/2016 6:04pm Urine Mucus SMALL /LPF * 06/02/2016 5:02pm 06/02/2016 6:04pm Urine Culture Indicated NO 06/02/2016 5:02pm 06/02/2016 6:04pm Sodium Level 139 MMOL/L 135-145 06/03/2016 5:10am 06/03/2016 5:59am Potassium Level 4.1 MMOL/L 3.6-5.0 06/03/2016 5:10am 06/03/2016 5:59am Chloride Level 114 MMOL/L H 98-107 06/03/2016 5:10am 06/03/2016 5:59am Carbon Dioxide Level 17 MMOL/L L 21-32 06/03/2016 5:10am 06/03/2016 5: 59am Anion Gap 8 MMOL/L 5-14 06/03/2016 5:10am 06/03/2016 5:59am Blood Urea Nitrogen 8 MG/DL 7-18 06/03/2016 5:10am 06/03/2016 5:59am Creatinine 0.71 MG/DL 0.60-1.30 06/03/2016 5:10am 06/03/2016 5:59am BUN/Creatinine Ratio 11 06/03/2016 5:10am 06/03/2016 5:59am Estimat Glomerular Filtration Rate > 60 06/03/2016 5:2016 5:59am GFR INTERPRETIVE DATA UNITS FOR ESTIMATED GFR (eGFR): mL/min/1.73 M2 REFERENCE RANGE FOR ESTIMATED GFR (eGFR) eGFR NORMAL eGFR >60 MODERATELY DECREASED eGFR 30-59 SEVERLY DECREASED eGFR 15-29 KIDNEY FAILURE <15 (OR DIALYSIS) Glucose Level 97 MG/DL 70-105 06/03/2016 5:06/03/2016 5:59am Calcium Level 8.4 MG/DL L 8.5-10.1 06/03/2016 5:06/03/2016 5:59am Total Bilirubin 1.6 MG/DL H 0.1-1.0 06/03/2016 5:06/03/2016 5:59am Alkaline Phosphatase 108 U/L 40-136 06/03/2016 5:06/03/2016 5: 59am Aspartate Amino Transf (AST/SGOT) 68 U/L H 5-34 06/03/2016 5:2016 5:59am Alanine Aminotransferase (ALT/SGPT) 61 U/L H 0-55 06/03/2016 5:06/03 5:59am Total Protein 6.7 G/DL 6.4-8.2 06/03/2016 5:06/03/2016 5:59am Albumin 3.4 G/DL 3.2-4.5 06/03/2016 5:06/03/2016 5:59am TSH [place] Testing 1.28 UIU/ML 0.35-4.94 06/02/2016 6:50pm 06/02/2016 7:40pm C-Reactive Protein High Sensitivity 18.54 MG/DL H 0.00-0.50 06/03/2016 5: 06/03/2016 10:37am Procedures No known history of procedures. Encounters Encounter Location Arrival/Admit Date Discharge/Depart Date Attending Provider Registered Clinic [facility] 06/15/16 5:42am ALAN MERCADO MD Discharged Inpatient [facility] 06/02/16 10:32pm 2:45pm CRISTA BLOOM DO
--- OUTSIDE RECORDS SUMMARY | 2016-06-19 08:09 | XMS REPORT | Continuity of Care Document ---
Author Author [facility] Organization [facility] Address Unknown Phone Unavailable Care Team Providers Care Wheelage Clerk Name Role Phone CRISTA BLOOM DO PCP Insurance Providers Payer Name Policy Number Subscriber Name Relationship [facility] [id number] Chester Fajardo Self / Same As Patient Advance Directives Directive Response Recorded Date/Time Advance Directives No 06/15/16 1:18pm Health Care Power of Collar Starcher No 06/15/16 1:18pm Organ Donor Yes 06/15/16 [...] Discontinued Butorphanol Tartrate 10 Mg/Ml Can, 1 [place] Nasal As Directed as needed Discontinued Ferrous [...] - 99.5) 06/04/2016 8:00am Temperature (Calculated Celsius) 37.46817 degrees C (36.4 - 37.5) 06/04/2016 8:00am [...] 7.00 inches 06/15/2016 1:17pm Height (Calculated Centimeters) 170.885608 cm 06/15/2016 1:17pm Weight (Pounds) 176 pounds 06/15/2016 1:17pm Weight (Ounces) 0.0 oz 06/15/2016 1:17pm Weight (Calculated Grams) 65123.26 gm 06/15/2016 1:17pm Weight (Calculated Kilograms) 79.478366 kilograms 06/15/2016 1:17pm Calculated BMI 27.6 06/15/2016 [...] SELECTED GROUPS OF HIGH RISK PATIENTS. SIXTH [place] [employer] CHEST PH[employer]ANS CONSENSUS CONFERENCE ON ANTITHROMBOTIC THERAPY (2000). Activated Partial Thromboplast Time 28 SEC 24-35 06/02/2016 6:50pm 7:11pm Urine Color YELLOW 06/02/2016 5:02pm 06/02/2016 6:04pm Urine Clarity SLIGHTLY CLOUDY 06/02/2016 5:02pm 06/02/2016 6:04pm Urine pH 5 5-9 06/02/2016 5:02pm 06/02/2016 6:04pm Urine Specific [place] 1.025 * 1.016-1.022 06/02/2016 5:02pm 2016 6:04pm [...] 3.4 G/DL 3.2-4.5 06/03/2016 5:06/03/2016 5:59am TSH [place] Testing 1.28 UIU/ML 0.35-4.94 06/02/2016 6:50pm 06/02/2016 7:40pm C-Reactive Protein High Sensitivity 18.54 MG/DL H 0.00-0.50 06/03/2016 5: 06/03/2016 10:37am Procedures No known history of procedures. Encounters Encounter Location Arrival/Admit Date Discharge/Depart Date Attending Provider Registered Clinic [facility] 06/15/16 5:42am ALAN MERCADO MD Discharged Inpatient [facility] 06/02/16 10:32pm 2:45pm CRISTA BLOOM DO
[2016-06-19] MEDS ORDERED: NS IV 500 ML 500 ML ONE (08:11)
[2016-06-19] MEDS ORDERED: HURRICAINE EXT TUBE (BENZOCAINE) XX PRN (08:30)
[2016-06-19] MEDS ORDERED: FLUMAZENIL (ROMAZICON) 0.1 MG/ML 5 ML VIAL INJ PRN (08:30)
[2016-06-19] MEDS ORDERED: NS IV 500 ML 500 ML IV PRN (08:30)
[2016-06-19] MEDS ORDERED: NALOXONE 0.4 MG/ML 1 ML (NARCAN) VIAL IVP PRN (08:30)
[2016-06-19 08:32] VITALS: BP 117/88
[2016-06-19] MEDS ORDERED: MIDAZOLAM 2 MG/2 ML (VERSED) VIAL ONE ×4 (08:46→08:47)
[2016-06-19] MEDS ORDERED: fentaNYL INJECTION 100 MCG/2 ML AMP ONE ×2 (08:46)
[2016-06-19] MEDS ORDERED: HURRICAINE EXT TUBE (BENZOCAINE) ONE (08:47)
--- NOTE | 2016-06-19 09:02 | Pre-Op Note & Conscious Sedat ---
Pre-Operative Progress Note H&P Reviewed The H&P was reviewed, patient examined and no changes noted. Date H&P Reviewed: Jun 19, 2016 Time H&P Reviewed: 09:02 Pre-Op Diagnosis: abdominal CT. Abdominal Conscious Sedation Pre-Proced ASA Class: 2 Airway Mallampati Classification: (quileute appropriate class) I. II. III, IV Lungs Heart ASA score ASA 1: a normal healthy patient ASA 2: a patient with a mild systemic disease (mid diabetes, controlled hypertension, obesity ASA 3: a patient with a severe systemic disease that limits activity (angina , COPD, prior Myocardial infarction) ASA 4: a patient with an incapacitating disease that is a constant threat to life (CHF, renal failure) ASA 5: a moribund patient not expected to survive 24 hrs. (ruptured aneurysm) ASA 6: a declared brain patient whose organs are being harvested. For emergent operations, add the letter E after the classification Grade 2 Sedation Plan: Discussed options with patient/fam Note The patient is an appropriate candidate to undergo the planned procedure, sedation, and anesthesia. The patient immediately re-assessed prior to indication. ALAN MERCADO MD Jun 19, 2016 9:02 am
[2016-06-19] MEDS: fentaNYL INJECTION 100 MCG/2 ML AMP IVP PRN ×4 (09:10→09:19)
[2016-06-19] MEDS: MIDAZOLAM 2 MG/2 ML (VERSED) VIAL IVP PRN ×4 (09:12→09:20)
--- NOTE | 2016-06-19 09:34 | Progress Note-Post Operative ---
Post-Operative Progess Note Pre-Operative Diagnosis abdominal CT. Abdominal pain Post-Operative Diagnosis 1 mm ulceration of the sigmoid colon. Normal right colon Post-Op Procedure Note Date of Procedure: Jun 19, 2016 Name of Procedure: colonoscopy to cecum. Biopsy of ulcer at the sigmoid colon Anesthesia Type sedation Specimen(s) collected mucosa of sigmoid colon ALAN MERCADO MD Jun 19, 2016 9:34 am
--- NOTE | 2016-06-19 09:36 | Discharge Inst-Simple/Standard ---
Discharge Inst-Standard Discharge Medications New, Converted or Re-Newed RX: Other Patient Instructions/Follow Up Plan of Care/Instructions/FU: please schedule a small bowel follow through with barium as an outpatient Activity as Tolerated: Yes Discharge Diet: No Restrictions ALAN MERCADO MD Jun 19, 2016 9:35 am
[2016-06-19 09:55] VITALS: BP 128/62
[2016-06-19 10:25] VITALS: BP 111/83
[2016-06-19 10:40] VITALS: BP 111/83
--- NOTE | 2016-06-20 08:01 | PROCEDURE REPORT ---
PROCEDURE PHYSICIAN: ALAN MERCADO DATE OF PROCEDURE: 06/19/2016 PROCEDURE: Colonoscopy with biopsy. SURGEON: Dr. Mercado. INDICATION FOR THE PROCEDURE: This lady was admitted with central abdominal pain and thickening of the right colon along with the small bowel on a CT scan. Her symptoms improved and she returned for colonoscopy as part of the ongoing evaluation. Informed consent was obtained after reviewing the procedure in detail. DESCRIPTION OF PROCEDURE: She was placed left lateral decubitus position and her vital signs were monitored. Conscious sedation was achieved using Versed and fentanyl. Digital rectal examination was unremarkable. The colonoscope was then introduced into the rectum and advanced to the cecum. Despite multiple attempts, the ileocecal valve could not be intubated. The scope was then withdrawn slowly and the mucosa examined in a systematic fashion. FINDINGS: A 1 mm area of ulceration at the sigmoid colon of unknown significance. Photodocumentation and biopsy were obtained. There was no abnormality of the right colon at all. She tolerated the procedure well and was taken back to the nursing area in a stable condition. IMPRESSION: 1. Abdominal pain that has resolved. 2. Thickening of the right colon and small bowel on CT scan. 3. No colonoscopy correlation. 4. Incidental small ulcer at the sigmoid colon. 5. Biopsy pending. NOTE: A small bowel contrast study with barium will be obtained as an outpatient. Job ID: [id number] Dictated Date: 06/19/2016 09:33:29 Transitional Care Liaison Date: 06/20/2016 07:58:12 / opal CRUZ
== END 2016-06-19 10:40 | disposition home or self-care (01) ==
LOC: ENDO 08:04
PROVIDERS: ATTEND Surgery
DX: K63.3 Ulcer of intestine (principal)
CPT/HCPCS: 84703; 88305

== ENCOUNTER → 2016-06-21 | Outpatient (CLI) | payer BC, OTHER ==
[~2016-06-21] MED LIST changes: +BARIUM SUSPENSION 60% (LIQUID EZ PAQUE) 240 ML DOSE PO ONE
--- OUTSIDE RECORDS SUMMARY | 2016-06-21 07:48 | XMS REPORT | Continuity of Care Document ---
Author Author [facility] Organization [facility] Address Unknown Phone Unavailable Care Team Providers Care Assurance Associate Name Role Phone CRISTA BLOOM DO PCP Insurance Providers Payer Name Policy Number Subscriber Name Relationship [facility] [id number] Chester Fajardo Self / Same As Patient Advance Directives Directive Response Recorded Date/Time Advance Directives No 06/15/16 1:18pm Health Care Power of Leather Production Machine Operator No 06/15/16 1:18pm Organ Donor Yes 06/15/16 [...] Discontinued Butorphanol Tartrate 10 Mg/Ml Can, 1 [place] Nasal As Directed as needed Discontinued Ferrous [...] - 99.5) 06/04/2016 8:00am Temperature (Calculated Celsius) 37.81597 degrees C (36.4 - 37.5) 06/04/2016 8:00am [...] 7.00 inches 06/15/2016 1:17pm Height (Calculated Centimeters) 170.327432 cm 06/15/2016 1:17pm Weight (Pounds) 176 pounds 06/15/2016 1:17pm Weight (Ounces) 0.0 oz 06/15/2016 1:17pm Weight (Calculated Grams) 72423.26 gm 06/15/2016 1:17pm Weight (Calculated Kilograms) 79.516177 kilograms 06/15/2016 1:17pm Calculated BMI 27.6 06/15/2016 [...] SELECTED GROUPS OF HIGH RISK PATIENTS. [employer]IX[employer] [place] [employer]ST PH[employer]IANS CONSENSUS CONFERENCE ON ANTITHROMBOTIC THERAPY (2000). Activated Partial Thromboplast Time 28 SEC 24-35 06/02/2016 6:50pm 7:11pm Urine Color YELLOW 06/02/2016 5:02pm 06/02/2016 6:04pm Urine Clarity SLIGHTLY CLOUDY 06/02/2016 5:02pm 06/02/2016 6:04pm Urine pH 5 5-9 06/02/2016 5:02pm 06/02/2016 6:04pm Urine Specific [place] 1.025 * 1.016-1.022 06/02/2016 5:02pm 2016 6:04pm [...] 3.4 G/DL 3.2-4.5 06/03/2016 5:06/03/2016 5:59am TSH [place] Testing 1.28 UIU/ML 0.35-4.94 06/02/2016 6:50pm 06/02/2016 7:40pm C-Reactive Protein High Sensitivity 18.54 MG/DL H 0.00-0.50 06/03/2016 5: 06/03/2016 10:37am Procedures No known history of procedures. Encounters Encounter Location Arrival/Admit Date Discharge/Depart Date Attending Provider Registered Clinic [facility] 06/15/16 5:42am ALAN MERCADO MD Discharged Inpatient [facility] 06/02/16 10:32pm 2:45pm CRISTA BLOOM DO
--- NOTE | 2016-06-21 12:30 | Diagnostic Imaging Report ---
EXAMINATION: Barium small bowel follow through. INDICATION: Thickening of small bowel loops CT scan from 06/02/16. TECHNIQUE: Trial Management Associate image of the abdomen was performed. Subsequently, the patient was given barium orally and serial images of the abdomen were obtained. FINDINGS: Trial Management Associate image of the abdomen demonstrates moderate amounts of fecal material seen particularly in the right colon. Multiple surgical clips in the upper right abdomen seen. There is prompt gastric emptying into the small bowel loops. There is a transient time through the small bowel of 2 hours. The small bowel caliber and fold pattern and thickness are normal. The terminal ileum appears normal. There are no filling defects seen. Emptying into the cecum is seen. The cecum itself however is not well evaluated on this exam. IMPRESSION: Unremarkable small bowel follow through. Dictated by: Dictated on workstation # [id number]
== END ==
LOC: RAD 07:44
PROVIDERS: ATTEND Surgery
DX: K63.89 Other specified diseases of intestine (principal)
CPT/HCPCS: 74250

== ENCOUNTER 2016-11-01 14:21 | Outpatient (CLI) | payer BC ==
[~2016-11-01] VITALS: Ht 170.2 cm; Wt 75.3 kg
[~2016-11-01 14:21] MED LIST changes: -BARIUM SUSPENSION 60% (LIQUID EZ PAQUE) 240 ML DOSE PO ONE
[2016-11-01] MEDS ORDERED: CLAR-19 PO (14:33)
[2016-11-01] MEDS ORDERED: AMOX500T2 PO (14:33)
[2016-11-01] MEDS ORDERED: OMEP20CA12 PO (14:33)
[2016-11-02] MEDS ORDERED: PANT40TA2 PO (15:12)
[2016-11-02] MEDS ORDERED: SUCR1TAB36 PO (15:12)
== END 2016-11-01 14:41 ==
LOC: PREOP 14:21
PROVIDERS: ATTEND Surgery
DX: Z01.818 Encounter for other preprocedural examination (principal); R11.2 Nausea with vomiting, unspecified

== ENCOUNTER 2016-11-02 12:32 | Day surgery (SDC) | payer BC ==
[~2016-11-02] VITALS: Ht 170.2 cm; Wt 75.3 kg
[~2016-11-02 12:32] MED LIST changes: +AMOX500T2 PO; +CLAR-19 PO; +OMEP20CA12 PO
[2016-11-02] MEDS ORDERED: NS IV 1000 ML 1,000 ML ONE ×2 (12:56→15:48)
[2016-11-02] MEDS ORDERED: NS IV 1000 ML 1,000 ML IV STA (12:58)
[2016-11-02] MEDS ORDERED: HURRICAINE EXT TUBE (BENZOCAINE) XX PRN (13:00)
[2016-11-02 13:17] VITALS: BP 135/100
[2016-11-02] MEDS ORDERED: proPOfol 200 MG/20 ML (DIPRIVAN) VIAL IV ONE (14:00)
[2016-11-02] MEDS ORDERED: ONDANSETRON 4 MG/2 ML (SDV) Z0FRAN ONE (14:43)
[2016-11-02] MEDS ORDERED: MIDAZOLAM 2 MG/2 ML (VERSED) VIAL ONE (14:43)
--- NOTE | 2016-11-02 14:57 | Progress Note-Pre Operative ---
Pre-Operative Progress Note H&P Reviewed The H&P was reviewed, patient examined and no changes noted. Date Seen by Provider: Nov 02, 2016 Time Seen by Provider: 14:53 Date H&P Reviewed: Nov 02, 2016 Time H&P Reviewed: 14:53 Pre-Operative Diagnosis: epigastric abdominal pain, + hpylori titer LEONORA VASQUES DO Nov 02, 2016 14:56
--- NOTE | 2016-11-02 15:11 | Progress Note-Post Operative ---
Post-Operative Progess Note Surgeon (s)/Back Tacker (s) Surgeon LEONORA VASQUES DO Back Tacker: na Pre-Operative Diagnosis epigastric abdominal pain, + hpylori titer Post-Operative Diagnosis gastritis, healing ulcers, hiatal hernia Procedure & Operative Findings Date of Procedure 11/02/16 Procedure Performed/Findings egd c biopsies Anesthesia Type per shop router Estimated Blood Loss Estimated blood loss (mL): scant Specimens/Packing Specimens Removed antrum, body, ge junction LEONORA VASQUES DO Nov 02, 2016 15:11
[2016-11-02] MEDS ORDERED: PANT40TA2 PO ×2 (15:12)
[2016-11-02] MEDS ORDERED: SUCR1TAB36 PO ×2 (15:12)
--- NOTE | 2016-11-02 15:13 | Discharge Inst-Simple/Standard ---
Discharge Inst-Standard Discharge Medications New, Converted or Re-Newed RX: Transmitted to Pharmacy Patient Instructions/Follow Up Plan of Care/Instructions/FU: 2-3 Weeks Sai Activity as Tolerated: Yes Discharge Diet: Regular Diet (small frequent meals) LEONORA VASQUES DO Nov 02, 2016 15:13
[2016-11-02] MEDS ORDERED: HURRICAINE EXT TUBE (BENZOCAINE) ONE (15:17)
[2016-11-02 15:30] VITALS: BP 111/75
[2016-11-02 15:55] VITALS: BP 120/88
[2016-11-02] MEDS ORDERED: NS IV 1000 ML 1,000 ML IV SCH (16:00)
[2016-11-02 17:15] VITALS: BP 120/88
--- NOTE | 2016-11-04 02:40 | OPERATIVE REPORT ---
DATE OF SERVICE: 11/02/2016 PREOPERATIVE DIAGNOSES: Epigastric abdominal pain, positive H. pylori. POSTOPERATIVE DIAGNOSES: Gastritis, healing ulcers and hiatal hernia. PROCEDURE: EGD with biopsy. 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 ESTIMATED BLOOD LOSS: None. COMPLICATIONS: None. INDICATIONS: The patient is a 36-year-old female with recent history of H. pylori titer. She has continued having epigastric abdominal pain and episodes of nausea and vomiting. She understands risks and benefits of procedure and wished to proceed with the procedure. Consent was signed in the chart. PROCEDURE: The patient was taken to the endoscopy suite, placed in left lateral recumbent position. Timeout was performed. Scope was inserted in mouth, down into esophagus, stomach and into the duodenum without difficulty. There were no polyps, mass or ulcerations within the duodenum. The scope was then slowly retracted back into the stomach, which had erythematous changes consistent with gastritis and the appearance of some healing ulcers more towards the antrum and body. Biopsy of the antrum and body were obtained. The scope was retroflexed noting a [id number] sized hiatal hernia. There are no other polyps, masses or ulcerations noted. The scope was returned to its normal position, slowly withdrawn back into the distal esophagus. Biopsies at the GE junction was obtained. There are no polyps, masses or ulcerations. Scope was slowly retracted until completely removed, noting no other pathology. The patient tolerated the procedure well without any complications. She was taken to recovery room in stable condition. RECOMMENDATIONS: The patient will continue treatment for H. pylori. She will do small frequent meals. We will see how her symptoms do and follow up on biopsy in the next couple of weeks. If any problems prior to that, she should be reevaluated at that time. Job ID: [id number] DocumentID: [id number] Dictated Date: 11/03/2016 21:25:42 Animal Skinner Date: 11/04/2016 02:33:14 Dictated By: LEONORA GIBBS DO
--- OUTSIDE RECORDS SUMMARY | 2016-11-06 13:44 | XMS REPORT ---
Author Author AIMEE CURRIE Organization [employer] Address Unknown Phone Unavailable Care Team Providers Care Packing Clerk Name Role Phone AIMEE CURRIE CP Unavailable Allergies No Known Allergies Problems Problem Type Condition Code Onset Dates Condition Status Assessment Screening for malignant neoplasm of cervix Z12.4 Active Assessment Encounter for counseling regarding contraception Z30.9 Active Problem Iron deficiency anemia, unspecified iron deficiency anemia type D50.9 Active Problem Dysmenorrhea N94.6 Active Problem Dysfunctional uterine bleeding N93.8 Active Assessment Dysfunctional uterine bleeding N93.8 Active Assessment Dysmenorrhea N94.6 Active Problem Encounter for dental examination and cleaning without abnormal findings Z01.20 Active Assessment Iron deficiency anemia, unspecified iron deficiency anemia type D50.9 Active Medications No Known Medications Procedures Procedure Coding System Code Date COMPREHEN METABOLIC PANEL CPT-4 16559 September 06, 2015 LIPID PANEL CPT-4 96733 September 06, 2015 GLYCATED HEMOGLOBIN TEST CPT-4 12615 September 06, 2015 ASSAY OF INSULIN CPT-4 21576 September 06, 2015 COMPLETE CBC W/AUTO DIFF WBC CPT-4 35161 September 06, 2015 VENIPUNCT, ROUTINE* CPT-4 70324 September 06, 2015 Results Name Result Date Reference Range Unit Abnormality Flag ROUTINE VENIPUNCTURE Summary Purpose [employer] Submission
--- OUTSIDE RECORDS SUMMARY | 2016-11-06 13:44 | XMS REPORT ---
Author Author KIM DIANE Organization [employer] Address Unknown Phone Unavailable Care Team Providers Care Patient Registration Representative Name Role Phone KIM DIANE CP Unavailable Allergies, Adverse Reactions, Alerts Substance Reaction Event Type N.K.D.A. Info Not Available Non Drug Allergy Problems Problem Type Condition Code Onset Dates Condition Status Problem Excessive or frequent menstruation 626.2 Active Problem Acute sinusitis, unspecified 461.9 Active Problem Screening examination for pulmonary tuberculosis V74.1 Active Assessment Menorrhagia with irregular cycle N92.1 Active Problem Health examination of defined subpopulation V70.5 Active Problem Acute upper respiratory infections of unspecified site 465.9 Active Medications No Known Medications Procedures Procedure Coding System Code Date Office Visit, Est Pt., Level 3 CPT-4 72718 Jun 11, 2015 Vital Signs Date/Time: Jun 11, 2015 Temperature 97.8 F Weight 170.8 lbs Height 65 in BMI 28.42 Index Blood Pressure Diastolic 80 mmHg Blood Pressure Systolic 124 mmHg Cardiac Monitoring Heart Rate 72 bpm Results No Known Results Summary Purpose [employer] Submission
--- OUTSIDE RECORDS SUMMARY | 2016-11-06 13:44 | XMS REPORT ---
Author Author AIMEE CURRIE Organization [employer] Address Unknown Phone Unavailable Care Team Providers Care Retail Pharmacist Name Role Phone AIMEE CURRIE CP Unavailable Allergies, Adverse Reactions, Alerts Substance Reaction Event Type N.K.D.A. Info Not Available Non Drug Allergy Problems Problem Type Condition Code Onset Dates Condition Status Problem Iron deficiency anemia, unspecified iron deficiency anemia type D50.9 Active Problem Dysmenorrhea N94.6 Active Problem Dysfunctional uterine bleeding N93.8 Active Assessment Dysfunctional uterine bleeding N93.8 Active Assessment Dysmenorrhea N94.6 Active Problem Encounter for dental examination and cleaning without abnormal findings Z01.20 Active Assessment Iron deficiency anemia, unspecified iron deficiency anemia type D50.9 Active Medications Medication Code System Code Instructions Start Date End Date Status Dosage Ferrous Sulfate [facility] [address]-76 325 (65 Fe) MG Orally twice a day August 05, 2015 1 tablet Tylenol NDC 0 Oral 1 tab ibuprofen [facility] [address]-29 Oral 1 tab Norethindrone [facility] [address]-58 0.35 MG Orally Once a day August 24, 2015 1 tablet Procedures Procedure Coding System Code Date Office Visit, Est Pt., Level 3 CPT-4 57390 August 24, 2015 URINE TEST CPT-4 99543 August 24, 2015 Vital Signs Date/Time: August 24, 2015 Temperature 97.4 F Weight 170.5 lbs Height 65 in BMI 28.37 Index Blood Pressure Diastolic 82 mmHg Blood Pressure Systolic 122 mmHg Cardiac Monitoring Heart Rate 82 bpm Results Name Result Date Reference Range Unit Abnormality Flag TEST, URINE (IN HOUSE) ----RESULTS negative [id number] ----Lot # [id number] ----Control + [id number] ----Exp date [id number] Summary Purpose [employer] Submission
--- OUTSIDE RECORDS SUMMARY | 2016-11-06 13:44 | XMS REPORT ---
Author Author AIMEE CURRIE Organization [employer] Address Unknown Phone Unavailable Care Team Providers Care Transfer Car Operator Name Role Phone AIMEE CURRIE CP Unavailable Allergies, Adverse Reactions, Alerts Substance Reaction Event Type N.K.D.A. Info Not Available Non Drug Allergy Problems Problem Type Condition Code Onset Dates Condition Status Assessment Iron deficiency anemia, unspecified iron deficiency anemia type D50.9 Active Assessment Migraines G43.909 Active Problem Dysfunctional uterine bleeding N93.8 Active Problem Iron deficiency anemia, unspecified iron deficiency anemia type D50.9 Active Problem Migraines G43.909 Active Assessment Routine health maintenance Z00.00 Active Assessment Dysfunctional uterine bleeding N93.8 Active Problem Dysmenorrhea N94.6 Active Problem Encounter for dental examination and cleaning without abnormal findings Z01.20 Active Medications Medication Code System Code Instructions Start Date End Date Status Dosage Norethindrone [facility] [address]-13 0.35 MG Orally Once a day August 24, 2015 1 tablet Procedures Procedure Coding System Code Date Office Visit, Est Pt., Level 3 CPT-4 07446 September 09, 2015 Vital Signs Date/Time: September 09, 2015 Temperature 97.8 F Weight 170.1 lbs Height 65 in BMI 28.30 Index Blood Pressure Diastolic 78 mmHg Blood Pressure Systolic 116 mmHg Cardiac Monitoring Heart Rate 80 bpm Results No Known Results Summary Purpose [employer] Submission
--- OUTSIDE RECORDS SUMMARY | 2016-11-06 13:45 | XMS REPORT | Continuity of Care Document ---
Author Author [facility] Address Unknown Phone Unavailable Allergies Active Description Code Type Severity Reaction Onset Reported/Identified Relationship to Patient Clinical Status Yes No Known Drug Allergies [id number] Drug Allergy Unknown N/ A 06/19/2016 Medications Problems Date Dx Coded Attending Type Code Diagnosis Diagnosed By 07/28/2009 Ot 574.20 07/28/2009 Ot 789.01 07/07/2011 465.9 UPPER RESPIRATORY INFECTION 07/07/2011 CRISTA BLOOM DO 465.9 UPPER RESPIRATORY INFECTION 07/07/2011 RUPA URRUTIA APRN 465.9 UPPER RESPIRATORY INFECTION 07/07/2011 ANA PAULA SERNA APRN 465.9 UPPER RESPIRATORY INFECTION 07/07/2011 JM GREEN APRN 465.9 UPPER RESPIRATORY INFECTION 02/08/2013 DEVEN HERNANDEZ MD Ot 346.90 MIGRAINE UNSPECIFIED W/O INTRACT MGRN W/ 10/21/2013 CRISTA BLOOM DO 461.9 SINUSITIS ACUTE 10/21/2013 RUPA URRUTIA APRN 461.9 SINUSITIS ACUTE 10/21/2013 ANA PAULA SERNA APRN S 461.9 SINUSITIS ACUTE 10/21/2013 JM GREEN APRN A 461.9 SINUSITIS ACUTE 02/11/2014 RUPA URRUTIA APRN R V74.1 TB SCREENING 02/11/2014 ANA PAULA SERNA APRN S V74.1 TB SCREENING 02/11/2014 JM GREEN APRN A V74.1 TB SCREENING 02/26/2014 ANA PAULA SERNA APRN S V70.5 EXAM - PRE-EMPLOYMENT 02/26/2014 JM GREEN APRN A V70.5 EXAM - PRE-EMPLOYMENT 07/14/2014 JM GREEN APRN 626.2 MENORRHAGIA 07/14/2014 JM GREEN APRN V72.62 LAB SCREENING- GENERAL PHYSICAL 08/31/2014 JAZLYN GREEN APRNJOSHUA Brooks V73.81 HPV SCREENING 08/31/2014 NORMA AIRLINE LOUNGE RECEPTIONISTJAZLYNJM A V76.2 CERVICAL CANCER SCREENING (PAP SMEAR) 09/07/2014 Ot 784.0 09/07/2014 Ot 784.0 09/07/2014 Ot 959.01 09/07/2014 Ot E000.8 09/07/2014 Ot E928.9 09/07/2014 Ot 724.1 09/07/2014 Ot 789.09 09/07/2014 Ot 729.5 09/07/2014 Ot 784.0 09/07/2014 Ot 787.01 09/07/2014 Ot 721.0 09/07/2014 Ot 784.0 09/07/2014 JAVI VILLEGAS, LUZ Muñoz Ot 789.00 09/07/2014 JAVI VILLEGAS, LUZ Muñoz Ot V45.89 09/07/2014 JAVI VILLEGAS, LUZ Muñoz Ot 611.72 10/10/2014 NORMA JMJOSHUA Brooks APRN Ot 626.2 01/04/2016 JM GREEN APRN Ot 626.2 EXCESSIVE MENSTRUATION 01/04/2016 TAMI BUCK MD Ot D64.9 ANEMIA, UNSPECIFIED 01/04/2016 TAMI BUCK MD Ot N93.8 OTHER SPECIFIED ABNORMAL UTERINE AND VAG 01/04/2016 TAMI BUCK MD Ot Z01.812 ENCOUNTER FOR PREPROCEDURAL LABORATORY E 01/04/2016 TAMI BUCK MD Ot Z11.2 ENCOUNTER FOR SCREENING FOR OTHER BACTER 01/05/2016 TAMI BUCK MD Ot D64.9 ANEMIA, UNSPECIFIED 01/05/2016 TAMI BUCK MD Ot N93.8 OTHER SPECIFIED ABNORMAL UTERINE AND VAG 01/05/2016 TAMI BUCK MD Ot Z01.812 ENCOUNTER FOR PREPROCEDURAL LABORATORY E 01/05/2016 TAMI BUCK MD Ot Z11.2 ENCOUNTER FOR SCREENING FOR OTHER BACTER 01/07/2016 JM GREEN APRN Ot 626.2 EXCESSIVE MENSTRUATION 01/07/2016 TAMI BUCK MD Ot 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 CORPUS UTERI 01/07/2016 TAMI BUCK MD Ot N92.0 EXCESSIVE AND FREQUENT MENSTRUATION WITH 01/07/2016 TAMI BUCK MD Ot N93.8 OTHER SPECIFIED ABNORMAL UTERINE AND VAG 01/13/2016 TAMI BUCK MD Ot 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 CORPUS UTERI 01/13/2016 TAMI BUCK MD, Ot N92.0 EXCESSIVE AND FREQUENT MENSTRUATION WITH 01/13/2016 TAMI BUCK MD, Ot N93.8 OTHER SPECIFIED ABNORMAL UTERINE AND VAG 06/04/2016 CRISTA BLOOM DO Ot K63.9 DISEASE OF INTESTINE, UNSPECIFIED 06/04/2016 CRISTA BLOOM DO Ot N93.8 OTHER SPECIFIED ABNORMAL UTERINE AND VAG 06/04/2016 CRISTA BLOOM DO Ot R10.2 PELVIC AND PERINEAL PAIN 06/04/2016 CRISTA BLOOM DO Ot R19.7 DIARRHEA, UNSPECIFIED 06/15/2016 JESS VILLEGAS, ALAN Ling Ot Z01.818 ENCOUNTER FOR OTHER PREPROCEDURAL EXAMIN 06/16/2016 ALAN MERCADO MD Ot Z01.818 ENCOUNTER FOR OTHER PREPROCEDURAL EXAMIN 06/19/2016 JESS VILLEGAS, ALAN Ling Ot K63.3 ULCER OF INTESTINE 06/21/2016 Ot 784.0 HEADACHE 06/21/2016 Ot 784.0 HEADACHE 06/21/2016 Ot 959.01 HEAD INJURY, NOS 06/21/2016 Ot E000.8 OTHER EXTERNAL CAUSE STATUS 06/21/2016 Ot E928.9 ACCIDENT NOS 06/21/2016 Ot 724.1 PAIN IN THORACIC SPINE 06/21/2016 Ot 789.09 ABDOMINAL PAIN, OTHER SPECIFIED SITE 06/21/2016 Ot 729.5 PAIN IN LIMB 06/21/2016 Ot 784.0 HEADACHE 06/21/2016 Ot 787.01 NAUSEA WITH VOMITING 06/21/2016 Ot 721.0 CERVICAL SPONDYLOSIS 06/21/2016 Ot 784.0 HEADACHE 06/21/2016 JAVI VILLEGAS, LUZ Muñoz Ot 789.00 ABDOMINAL PAIN, UNSPECIFIED SITE 06/21/2016 JAVI VILLEGAS, LUZ Muñoz Ot V45.89 POSTSURGICAL STATES NEC 06/21/2016 JAVI VILLEGAS, LUZ Muñoz Ot 611.72 LUMP OR MASS IN BREAST 06/21/2016 ALAN MERCADO MD Ot K63.3 ULCER OF INTESTINE 06/22/2016 ALAN MERCADO MD Ot K63.89 OTHER SPECIFIED DISEASES OF INTESTINE 06/22/2016 ALAN MERCADO MD Ot K63.3 ULCER OF INTESTINE 06/27/2016 ALAN MERCADO MD Ot K63.89 OTHER SPECIFIED DISEASES OF INTESTINE 07/06/2016 ALAN MERCADO MD Ot K63.89 OTHER SPECIFIED DISEASES OF INTESTINE 07/24/2016 Ot 784.0 HEADACHE 07/24/2016 Ot 959.01 HEAD INJURY, NOS 07/24/2016 Ot E000.8 OTHER EXTERNAL CAUSE STATUS 07/24/2016 Ot E928.9 ACCIDENT NOS 07/24/2016 Ot 724.1 PAIN IN THORACIC SPINE 07/24/2016 Ot 789.09 ABDOMINAL PAIN, OTHER SPECIFIED SITE 07/24/2016 Ot 729.5 PAIN IN LIMB 07/24/2016 Ot 784.0 HEADACHE 07/24/2016 Ot 787.01 NAUSEA WITH VOMITING 07/24/2016 Ot 721.0 CERVICAL SPONDYLOSIS 07/24/2016 Ot 784.0 HEADACHE 07/24/2016 JAVI VILLEGAS, LUZ Muñoz Ot 789.00 ABDOMINAL PAIN, UNSPECIFIED SITE 07/24/2016 JAVI VILLEGAS, LUZ Muñoz Ot V45.89 POSTSURGICAL STATES NEC 07/24/2016 JAVI VILLEGAS, LUZ Muñoz Ot 611.72 LUMP OR MASS IN BREAST 07/24/2016 ALAN MERCADO MD Ot K63.89 OTHER SPECIFIED DISEASES OF INTESTINE 09/15/2016 ALAN MERCADO MD Ot K63.89 OTHER SPECIFIED DISEASES OF INTESTINE 11/01/2016 ALAN MERCADO MD Ot K63.89 OTHER SPECIFIED DISEASES OF INTESTINE 11/01/2016 VASQUES DO, LEONORA D Ot R11.2 NAUSEA WITH VOMITING, UNSPECIFIED 11/01/2016 VASQUESADALGISA JIM DOTT D Ot Z01.818 ENCOUNTER FOR OTHER PREPROCEDURAL EXAMIN 11/02/2016 VASQUES DO, LEONORA D Ot R11.2 NAUSEA WITH VOMITING, UNSPECIFIED 11/02/2016 VASQUES DOADALGISATT D Ot Z01.818 ENCOUNTER FOR OTHER PREPROCEDURAL EXAMIN 11/03/2016 ALAN MERCADO MD Ot K63.89 OTHER SPECIFIED DISEASES OF INTESTINE Procedures Code Description Performed By Performed On 47.01 LAPAROSCOP APPENDECTOMY 04/02/2009 53.43 OTHER LAPAROSCOPIC UMBILICAL HERNIORRHAP 04/02/2009 57306 TEST, URINE (IN-HOUSE) 10/21/2013 73794 TB TEST INTRADERMAL 02/11/2014 55380 TEST, URINE (IN-HOUSE) 02/26/2014 34909 US PELVIC COMPL (REFLEX CPT- 96124) 09/01/2014 Q0091 PAP SMEAR OBTAIN SMEAR 09/01/2014 88149 PAP SMEAR 2014 Results Test Result Range Complete blood count (CBC) with automated white blood cell (WBC) differential - 01/04/16 11:45 Blood leukocytes automated count (number/volume) 8.5 10*3/ uL 4.3-11.0 Blood erythrocytes automated count (number/volume) 5.23 10*6 /uL 4.35-5.85 Venous blood hemoglobin measurement (mass/volume) 13.9 g/dL 11.5-16.0 Blood hematocrit (volume fraction) 41 % 35-52 Automated erythrocyte mean corpuscular volume 79 [foz_us] 80-99 Automated erythrocyte mean corpuscular hemoglobin (mass per erythrocyte) 27 pg 25-34 Automated erythrocyte mean corpuscular hemoglobin concentration measurement ( mass/volume) 34 g/dL 32-36 Automated erythrocyte distribution width ratio 16.7 % 10.0-14.5 Automated blood platelet count (count/volume) 355 10*3/uL 130-400 Automated blood platelet mean volume measurement 9.8 [foz_us ] 7.4-10.4 Automated blood neutrophils/100 leukocytes 67 % 42-75 Automated blood lymphocytes/100 leukocytes 26 % 12-44 Blood monocytes/100 leukocytes 6 % 0-12 Automated blood eosinophils/100 leukocytes 1 % 0-10 Automated blood basophils/100 leukocytes 1 % 0-10 Blood neutrophils automated count (number/volume) 5.7 10*3 1.8-7.8 Blood lymphocytes automated count (number/volume) 2.2 10*3 1.0-4.0 Blood monocytes automated count (number/volume) 0.5 10*3 0.0-1.0 Automated eosinophil count 0.1 10*3/uL 0.0-0.3 Automated blood basophil count (count/volume) 0.0 10*3/uL 0.0-0.1 Methicillin resistant Staphylococcus aureus (MRSA) screening culture - 11:45 Methicillin resistant Staphylococcus aureus (MRSA) screening culture NEG NRG Urine beta human chorionic gonadotropin (hCG) measurement - 01/07/16 10:50 Urine beta human chorionic gonadotropin (hCG) measurement NEGATIVE NEGATIVE Complete urinalysis with reflex to culture - 06/02/16 17:02 Urine color determination YELLOW NRG Urine clarity determination SLIGHTLY CLOUDY NRG Urine pH measurement by test strip 5 5- 9 Specific gravity of urine by test strip 1.025 1.016-1.022 Urine protein assay by test strip, semi-quantitative 2+ NEGATIVE Urine glucose detection by automated test strip NEGATIVE NEGATIVE Erythrocytes detection in urine sediment by light microscopy 5+ NEGATIVE Urine ketones detection by automated test strip 1+ NEGATIVE Urine nitrite detection by test strip NEGATIVE NEGATIVE Urine total bilirubin detection by test strip NEGATIVE NEGATIVE Urine urobilinogen measurement by automated test strip (mass/volume) 1 mg/dL NORMAL Urine leukocyte esterase detection by dipstick 1+ NEGATIVE Automated urine sediment erythrocyte count by microscopy (number/high power field) .100 NRG Automated urine sediment leukocyte count by microscopy (number/high power field ) [HPF] NRG Bacteria detection in urine sediment by light microscopy NONE NRG Squamous epithelial cells detection in urine sediment by light microscopy 2-5 NRG Crystals detection in urine sediment by light microscopy NONE NRG Casts detection in urine sediment by light microscopy NONE NRG Mucus detection in urine sediment by light microscopy SMALL NRG Complete urinalysis with reflex to culture NO NRG Complete blood count (CBC) with automated white blood cell (WBC) differential - 06/02/16 18:50 Blood leukocytes automated count (number/volume) 14.9 10*3/ uL 4.3-11.0 Blood erythrocytes automated count (number/volume) 4.66 10*6 /uL 4.35-5.85 Venous blood hemoglobin measurement (mass/volume) 13.0 g/dL 11.5-16.0 Blood hematocrit (volume fraction) 38 % 35-52 Automated erythrocyte mean corpuscular volume 81 [foz_us] 80-99 Automated erythrocyte mean corpuscular hemoglobin (mass per erythrocyte) 28 pg 25-34 Automated erythrocyte mean corpuscular hemoglobin concentration measurement ( mass/volume) 34 g/dL 32-36 Automated erythrocyte distribution width ratio 14.3 % 10.0-14.5 Automated blood platelet count (count/volume) 428 10*3/uL 130-400 Automated blood platelet mean volume measurement 9.0 [foz_us ] 7.4-10.4 Automated blood neutrophils/100 leukocytes 81 % 42-75 Automated blood lymphocytes/100 leukocytes 12 % 12-44 Blood monocytes/100 leukocytes 7 % 0-12 Automated blood eosinophils/100 leukocytes 0 % 0-10 Automated blood basophils/100 leukocytes 0 % 0-10 Blood neutrophils automated count (number/volume) 12.0 10*3 1.8-7.8 Blood lymphocytes automated count (number/volume) 1.8 10*3 1.0-4.0 Blood monocytes automated count (number/volume) 1.0 10*3 0.0-1.0 Automated eosinophil count 0.1 10*3/uL 0.0-0.3 Automated blood basophil count (count/volume) 0.0 10*3/uL 0.0-0.1 PT panel in platelet poor plasma by coagulation assay - 06/02/16 18:50 Prothrombin time (PT) in platelet poor plasma by coagulation assay 13.5 s 12.2-14.7 INR in platelet poor plasma or blood by coagulation assay 1.1 0.8-1.4 Activated partial thromboplastin time (aPTT) in platelet poor plasma bycoagulation assay - 06/02/16 18:50 Activated partial thromboplastin time (aPTT) in platelet poor plasma bycoagulation assay 28 s 24-35 Comprehensive metabolic panel - 06/02/16 18:50 Serum or plasma sodium measurement (moles/volume) 139 mmol/ L 135-145 Serum or plasma potassium measurement (moles/volume) 3.5 mmol/L 3.6-5.0 Serum or plasma chloride measurement (moles/volume) 108 mmol /L 98-107 Carbon dioxide 20 mmol/L 21-32 Serum or plasma anion gap determination (moles/volume) 11 mmol/L 5-14 Serum or plasma urea nitrogen measurement (mass/volume) 15 mg/dL 7-18 Serum or plasma creatinine measurement (mass/volume) 0.84 mg /dL 0.60-1.30 Serum or plasma urea nitrogen/creatinine mass ratio 18 NRG Serum or plasma creatinine measurement with calculation of estimated glomerular filtration rate > NRG Serum or plasma glucose measurement (mass/volume) 93 mg/dL 70-105 Serum or plasma calcium measurement (mass/volume) 9.2 mg/dL 8.5-10.1 Serum or plasma total bilirubin measurement (mass/volume) 1.1 mg/dL 0.1-1.0 Serum or plasma alkaline phosphatase measurement (enzymatic activity/volume) 112 U/L 40-136 Serum or plasma aspartate aminotransferase measurement (enzymatic activity/ volume) 42 U/L 5-34 Serum or plasma alanine aminotransferase measurement (enzymatic activity/volume ) 47 U/L 0-55 Serum or plasma protein measurement (mass/volume) 7.8 g/dL 6.4-8.2 Serum or plasma albumin measurement (mass/volume) 4.1 g/dL 3.2-4.5 Blood manual differential performed detection - 06/02/16 18:50 Blood monocytes/100 leukocytes 6 % NRG Manual blood segmented neutrophils/100 leukocytes 82 % NRG Blood band neutrophils/100 leukocytes 5 % NRG Manual blood lymphocytes/100 leukocytes 7 % NRG Manual eosinophils/100 leukocytes in nose 0 % NRG Manual blood basophils/100 leukocytes 0 % NRG Blood erythrocyte morphology finding identification NORMAL NRG Serum or plasma thyrotropin measurement by detection limit <=0.05 miu/l (units/ volume) - 06/02/16 18:50 Serum or plasma thyrotropin measurement by detection limit <=0.05 miu/l (units/ volume) 1.28 u[iU]/mL 0.35-4.94 Complete blood count (CBC) with automated white blood cell (WBC) differential - 06/03/16 05:10 Blood leukocytes automated count (number/volume) 8.9 10*3/ uL 4.3-11.0 Blood erythrocytes automated count (number/volume) 4.35 10*6 /uL 4.35-5.85 Venous blood hemoglobin measurement (mass/volume) 12.0 g/dL 11.5-16.0 Blood hematocrit (volume fraction) 36 % 35-52 Automated erythrocyte mean corpuscular volume 82 [foz_us] 80-99 Automated erythrocyte mean corpuscular hemoglobin (mass per erythrocyte) 28 pg 25-34 Automated erythrocyte mean corpuscular hemoglobin concentration measurement ( mass/volume) 34 g/dL 32-36 Automated erythrocyte distribution width ratio 14.3 % 10.0-14.5 Automated blood platelet count (count/volume) 344 10*3/uL 130-400 Automated blood platelet mean volume measurement 9.3 [foz_us ] 7.4-10.4 Automated blood neutrophils/100 leukocytes 77 % 42-75 Automated blood lymphocytes/100 leukocytes 15 % 12-44 Blood monocytes/100 leukocytes 8 % 0-12 Automated blood eosinophils/100 leukocytes 1 % 0-10 Automated blood basophils/100 leukocytes 0 % 0-10 Blood neutrophils automated count (number/volume) 6.8 10*3 1.8-7.8 Blood lymphocytes automated count (number/volume) 1.3 10*3 1.0-4.0 Blood monocytes automated count (number/volume) 0.7 10*3 0.0-1.0 Automated eosinophil count 0.1 10*3/uL 0.0-0.3 Automated blood basophil count (count/volume) 0.0 10*3/uL 0.0-0.1 Comprehensive metabolic panel - 06/03/16 05:10 Serum or plasma sodium measurement (moles/volume) 139 mmol/ L 135-145 Serum or plasma potassium measurement (moles/volume) 4.1 mmol/L 3.6-5.0 Serum or plasma chloride measurement (moles/volume) 114 mmol /L 98-107 Carbon dioxide 17 mmol/L 21-32 Serum or plasma anion gap determination (moles/volume) 8 mmol/L 5-14 Serum or plasma urea nitrogen measurement (mass/volume) 8 mg /dL 7-18 Serum or plasma creatinine measurement (mass/volume) 0.71 mg /dL 0.60-1.30 Serum or plasma urea nitrogen/creatinine mass ratio 11 NRG Serum or plasma creatinine measurement with calculation of estimated glomerular filtration rate > NRG Serum or plasma glucose measurement (mass/volume) 97 mg/dL 70-105 Serum or plasma calcium measurement (mass/volume) 8.4 mg/dL 8.5-10.1 Serum or plasma total bilirubin measurement (mass/volume) 1.6 mg/dL 0.1-1.0 Serum or plasma alkaline phosphatase measurement (enzymatic activity/volume) 108 U/L 40-136 Serum or plasma aspartate aminotransferase measurement (enzymatic activity/ volume) 68 U/L 5-34 Serum or plasma alanine aminotransferase measurement (enzymatic activity/volume ) 61 U/L 0-55 Serum or plasma protein measurement (mass/volume) 6.7 g/dL 6.4-8.2 Serum or plasma albumin measurement (mass/volume) 3.4 g/dL 3.2-4.5 Serum or plasma choriogonadotropin measurement (units/volume) - 06/03/16 05:10 Serum or plasma choriogonadotropin measurement (units/volume) < m[iU]/mL <5 Serum or plasma C reactive protein measurement (mass/volume) - 06/03/16 05:10 Serum or plasma C reactive protein measurement (mass/volume) 18.54 mg/dL 0.00-0.50 Erythrocyte sedimentation rate by westergren method - 06/03/16 05:10 Erythrocyte sedimentation rate by westergren method 56 mm 0-20 Chlamydia DNA amp probe, urine - 06/03/16 09:05 Chlamydia DNA amp probe, urine Negative Negative Urine Neisseria gonorrhoeae DNA assay - 06/03/16 09:05 Gonorrhea amp DNA-urine Negative Negative Urine beta human chorionic gonadotropin (hCG) measurement - 06/19/16 08:55 Urine beta human chorionic gonadotropin (hCG) measurement NEGATIVE NEGATIVE Complete urinalysis with reflex to culture - 11/03/16 10:20 Urine color determination YELLOW NRG Urine clarity determination CLEAR NRG Urine pH measurement by test strip 7 5- 9 Specific gravity of urine by test strip 1.010 1.016-1.022 Urine protein assay by test strip, semi-quantitative NEGATIVE NEGATIVE Urine glucose detection by automated test strip NEGATIVE NEGATIVE Erythrocytes detection in urine sediment by light microscopy NEGATIVE NEGATIVE Urine ketones detection by automated test strip 2+ NEGATIVE Urine nitrite detection by test strip NEGATIVE NEGATIVE Urine total bilirubin detection by test strip NEGATIVE NEGATIVE Urine urobilinogen measurement by automated test strip (mass/volume) NORMAL NORMAL Urine leukocyte esterase detection by dipstick NEGATIVE NEGATIVE Automated urine sediment erythrocyte count by microscopy (number/high power field) NONE NRG Automated urine sediment leukocyte count by microscopy (number/high power field ) NONE NRG Bacteria detection in urine sediment by light microscopy NEGATIVE NRG Squamous epithelial cells detection in urine sediment by light microscopy 10-25 NRG Crystals detection in urine sediment by light microscopy NONE NRG Casts detection in urine sediment by light microscopy NONE NRG Mucus detection in urine sediment by light microscopy NEGATIVE NRG Complete urinalysis with reflex to culture NO NRG Complete blood count (CBC) with automated white blood cell (WBC) differential - 11/03/16 10:45 Blood leukocytes automated count (number/volume) 10.1 10*3/ uL 4.3-11.0 Blood erythrocytes automated count (number/volume) 5.55 10*6 /uL 4.35-5.85 Venous blood hemoglobin measurement (mass/volume) 15.1 g/dL 11.5-16.0 Blood hematocrit (volume fraction) 44 % 35-52 Automated erythrocyte mean corpuscular volume 80 [foz_us] 80-99 Automated erythrocyte mean corpuscular hemoglobin (mass per erythrocyte) 27 pg 25-34 Automated erythrocyte mean corpuscular hemoglobin concentration measurement ( mass/volume) 34 g/dL 32-36 Automated erythrocyte distribution width ratio 14.6 % 10.0-14.5 Automated blood platelet count (count/volume) 378 10*3/uL 130-400 Automated blood platelet mean volume measurement 9.9 [foz_us ] 7.4-10.4 Automated blood neutrophils/100 leukocytes 73 % 42-75 Automated blood lymphocytes/100 leukocytes 20 % 12-44 Blood monocytes/100 leukocytes 5 % 0-12 Automated blood eosinophils/100 leukocytes 1 % 0-10 Automated blood basophils/100 leukocytes 0 % 0-10 Blood neutrophils automated count (number/volume) 7.4 10*3 1.8-7.8 Blood lymphocytes automated count (number/volume) 2.0 10*3 1.0-4.0 Blood monocytes automated count (number/volume) 0.5 10*3 0.0-1.0 Automated eosinophil count 0.1 10*3/uL 0.0-0.3 Automated blood basophil count (count/volume) 0.0 10*3/uL 0.0-0.1 Comprehensive metabolic panel - 11/03/16 10:45 Serum or plasma sodium measurement (moles/volume) 143 mmol/ L 135-145 Serum or plasma potassium measurement (moles/volume) 3.0 mmol/L 3.6-5.0 Serum or plasma chloride measurement (moles/volume) 106 mmol /L 98-107 Carbon dioxide 22 mmol/L 21-32 Serum or plasma anion gap determination (moles/volume) 15 mmol/L 5-14 Serum or plasma urea nitrogen measurement (mass/volume) 5 mg /dL 7-18 Serum or plasma creatinine measurement (mass/volume) 0.83 mg /dL 0.60-1.30 Serum or plasma urea nitrogen/creatinine mass ratio 6 0-20 Serum or plasma creatinine measurement with calculation of estimated glomerular filtration rate > NRG Serum or plasma glucose measurement (mass/volume) 102 mg/dL 70-105 Serum or plasma calcium measurement (mass/volume) 10.0 mg/ dL 8.5-10.1 Serum or plasma total bilirubin measurement (mass/volume) 1.0 mg/dL 0.1-1.0 Serum or plasma alkaline phosphatase measurement (enzymatic activity/volume) 78 U/L 40-136 Serum or plasma aspartate aminotransferase measurement (enzymatic activity/ volume) 23 U/L 5-34 Serum or plasma alanine aminotransferase measurement (enzymatic activity/volume ) 21 U/L 0-55 Serum or plasma protein measurement (mass/volume) 8.5 g/dL 6.4-8.2 Serum or plasma albumin measurement (mass/volume) 4.6 g/dL 3.2-4.5 Serum or plasma amylase measurement (enzymatic activity/volume) - 11/03/16 10: 45 Serum or plasma amylase measurement (enzymatic activity/volume) 60 U/L 25-125 Lipase - 11/03/16 10:45 Lipase 15 U/L 8-78 Encounters ACCT No. Visit Date/Time Discharge Status Pt. Type Provider Facility Loc./Unit Complaint [id number] 08/31/2014 17:49:00 08/31/2014 23: 59:59 CLS Outpatient JM GREEN APRN [id number] 02/26/2014 18:21:00 02/26/2014 23: 59:59 CLS Outpatient ANA PAULA SERNA APRN [id number] 02/11/2014 17:36:00 02/11/2014 23: 59:59 CLS Outpatient RUPA URRUTIA APRN [id number] 10/21/2013 17:30:00 10/21/2013 23: 59:59 CLS Outpatient CRISTA BLOOM DO [id number] 07/07/2011 08:21:00 07/07/2011 23: 59:59 CLS Outpatient
== END 2016-11-02 17:15 | disposition home or self-care (01) ==
LOC: ENDO 12:32
PROVIDERS: ATTEND Surgery
DX: K29.70 Gastritis, unspecified, without bleeding (principal); K44.9 Diaphragmatic hernia without obstruction or gangrene; K25.7 Chronic gastric ulcer without hemorrhage or perforation

== ENCOUNTER 2016-11-03 09:58 | Emergency (ER) | payer BC ==
[~2016-11-03] VITALS: Ht 170.2 cm; Wt 75.3 kg
[~2016-11-03 09:58] MED LIST changes: +PANT40TA2 PO; +SUCR1TAB36 PO
[2016-11-03 10:26] LABS: BILIRUBIN,URINE NEGATIVE (NEGATIVE); KETONES,URINE 2+ (NEGATIVE); LEUKOCYTE ESTERASE ,URINE NEGATIVE (NEGATIVE); NITRITE,URINE NEGATIVE (NEGATIVE); PH,URINE 7 (5-9); PROTEIN,URINE NEGATIVE (NEGATIVE); UROBILINOGEN,URINE NORMAL (NORMAL)
[2016-11-03] MEDS ORDERED: LACTATED RINGERS 1,000 ML IV ONE (10:36)
[2016-11-03] MEDS ORDERED: FAMOTIDINE 20MG/2ML IV (PEPCID) IV STA (10:36)
--- NOTE | 2016-11-03 10:41 | ED GI ---
General Chief Complaint: Abdominal/GI Problems Stated Complaint: VOMITING Nursing Triage Note: to ER with complaints of intermittent nausea and vomiting x 1 month. Patient had EGD yesterday, and was called in nausea medications but wanted to be evaluated. Sepsis Screen: No Definite Risk Source of Information: Patient Exam Limitations: No Limitations History of Present Illness Time Seen By Provider: 10:25 Initial Comments Here for report of persistent nausea and vomiting that is worse since yesterday when she had an EGD done. She did have medicines called in for her but she states that she's not been available to take those and is very concerned about dehydration because she has had dry heaving and has not been taking fluids since yesterday. She reports she is essentially not eating or drinking much for the last several days. Does have H. pylori infection and is currently under therapy for that with antibiotics. Timing/Duration: 3-4 Days, Getting Worse Severity/Quality: Moderate, Aching, Cramping Location: Epigastric Radiation: No Radiation Activities at Onset: None Modifying Factors: Worsens With Eating Associated Symptoms: No Back Pain, No Chest Pain, No Fever/Chills, Fatigue, Nausea/Vomiting, No Shortness of Air, No Weakness Allergies and Home Medications Allergies Coded Allergies: No Known Drug Allergies (Verified , 10/12/08) Home Medications Amoxicillin 500 Mg Tablet, 1,000 MG PO BID, (Reported) Clarithromycin 500 Mg Tablet, 500 MG PO BID, (Reported) Ferrous Sulfate 325 Mg Tablet, 325 MG PO BID, (Reported) Loratadine 10 Mg Tablet, 10 MG PO DAILY, (Reported) Pantoprazole Sodium 40 Mg Tablet.dr, 40 MG PO DAILY, #3 Ref 5 Prescribed by: LEONORA VASQUES on 11/02/16 1512 Sucralfate 1 Gm Tablet, 1 GM PO QID, #120 Prescribed by: LEONORA VASQUES on 11/02/16 1512 Review of Systems Constitutional: see HPI, No chills, No fever EENTM: No Symptoms Reported Respiratory: No Symptoms Reported Cardiovascular: No Symptoms Reported Gastrointestinal: See HPI, Abdominal Pain, Denies Diarrhea, Nausea, Vomiting Genitourinary: No Symptoms Reported Musculoskeletal: no symptoms reported All Other Systems Reviewed Negative Unless Noted: Yes Past Ylbrjhl-Kmuqca-Hkjibx Hx Patient Social History Alcohol Use: Denies Use Recreational Drug Use: No Smoking Status: Never a Smoker 2nd Hand Smoke Exposure: No Recent Foreign Travel: No Contact w/Someone Who Travel: No Recent Infectious Disease Expo: No Recent Hopitalizations: No Immunizations Up To Date Tetanus Booster (TDap): Unknown Date of Influenza Vaccine: Mar 14, 2016 Seasonal Allergies Seasonal Allergies: Yes Surgeries HX Surgeries: Yes (FOOT SX, D&C) Surgeries: Appendectomy, Gallbladder Respiratory Hx Respiratory Disorders: No Cardiovascular Hx Cardiac Disorders: No Neurological Hx Neurological Disorders: Yes Neurological Disorders: Headaches /Migraines Reproductive System Hx Reproductive Disorders: No Genitourinary Hx Genitourinary Disorders: No Gastrointestinal Hx Gastrointestinal Disorders: Yes Gastrointestinal Disorders: Gastroesophageal Reflux Musculoskeletal Hx Musculoskeletal Disorders: No Endocrine Hx Endocrine Disorders: No HEENT HX ENT Disorders: Yes (GLASSES) Loss of Vision: Right Hearing Impairment: Denies Cancer Hx Cancer: No Psychosocial Hx Psychiatric Problems: No Integumentary HX Skin/Integumentary Disorder: No Blood Transfusions Hx Blood Disorders: Yes (ANEMIA) Family Medical History Significant Family History: No Pertinent Family Hx Physical Exam Vital Signs VS - Last 72 Hours, by Label 11/03/16 10:24 Temp 97.8 Pulse 81 Resp 18 B/P (MAP) 156/100 Pulse Ox 96 O2 Delivery Room Air Capillary Refill : Less Than 3 Seconds General Appearance: WD/WN, no apparent distress HEENT: PERRL/EOMI, pharynx normal Neck: full range of motion, supple Respiratory: lungs clear, normal breath sounds Cardiovascular: regular rate, rhythm, no murmur Peripheral Pulses: 2+ Dorsalis Pedis (R), 2+ Left Dors-Pedis (L), 2+ Radial Pulses (R), 2+ Radial Pulses (L) Gastrointestinal: non tender, soft Extremities: non-tender, normal inspection, no pedal edema, no calf tenderness Back: normal inspection, no CVA tenderness, no vertebral tenderness Neurologic/Psychiatric: alert, oriented x 3 Skin: normal color, warm/dry Progress/Results/Core Measures Results/Orders Lab Results Laboratory Tests Test 11/03/16 10:20 11/03/16 10:45 Range/Units Urine Color YELLOW Urine Clarity CLEAR Urine pH 7 5-9 Urine Specific [place] 1.010 L 1.016-1.022 Urine Protein NEGATIVE NEGATIVE Urine Glucose (UA) NEGATIVE NEGATIVE Urine Ketones 2+ H NEGATIVE Urine Nitrite NEGATIVE NEGATIVE Urine Bilirubin NEGATIVE NEGATIVE Urine Urobilinogen NORMAL NORMAL MG/DL Urine Leukocyte Esterase NEGATIVE NEGATIVE Urine RBC (Auto) NEGATIVE NEGATIVE Urine RBC NONE /HPF Urine WBC NONE /HPF Urine Squamous Epithelial Cells 10-25 H /HPF Urine Crystals NONE /LPF Urine Bacteria NEGATIVE /HPF Urine Casts NONE /LPF Urine Mucus NEGATIVE /LPF Urine Culture Indicated NO White Blood Count 10.1 4.3-11.0 10^3/uL Red Blood Count 5.55 4.35-5.85 10^6/uL Hemoglobin 15.1 11.5-16.0 G/DL Hematocrit 44 35-52 % Mean Corpuscular Volume 80 80-99 FL Mean Corpuscular Hemoglobin 27 25-34 PG Mean Corpuscular Hemoglobin Concent 34 32-36 G/DL Red Cell Distribution Width 14.6 H 10.0-14.5 % Platelet Count 378 130-400 10^3/uL Mean Platelet Volume 9.9 7.4-10.4 FL Neutrophils (%) (Auto) 73 42-75 % Lymphocytes (%) (Auto) 20 12-44 % Monocytes (%) (Auto) 5 0-12 % Eosinophils (%) (Auto) 1 0-10 % Basophils (%) (Auto) 0 0-10 % Neutrophils # (Auto) 7.4 1.8-7.8 X 10^3 Lymphocytes # (Auto) 2.0 1.0-4.0 X 10^3 Monocytes # (Auto) 0.5 0.0-1.0 X 10^3 Eosinophils # (Auto) 0.1 0.0-0.3 10^3/uL Basophils # (Auto) 0.0 0.0-0.1 10^3/uL Sodium Level 143 135-145 MMOL/L Potassium Level 3.0 L 3.6-5.0 MMOL/L Chloride Level 106 98-107 MMOL/L Carbon Dioxide Level 22 21-32 MMOL/L Anion Gap 15 H 5-14 MMOL/L Blood Urea Nitrogen 5 L 7-18 MG/DL Creatinine 0.83 0.60-1.30 MG/DL Estimat Glomerular Filtration Rate > 60 BUN/Creatinine Ratio 6 0-20 Glucose Level 102 70-105 MG/DL Calcium Level 10.0 8.5-10.1 MG/DL Total Bilirubin 1.0 0.1-1.0 MG/DL Aspartate Amino Transf (AST/SGOT) 23 5-34 U/L Alanine Aminotransferase (ALT/SGPT) 21 0-55 U/L Alkaline Phosphatase 78 40-136 U/L Total Protein 8.5 H 6.4-8.2 GM/DL Albumin 4.6 H 3.2-4.5 GM/DL Amylase Level 60 25-125 U/L Lipase 15 8-78 U/L My Orders Orders - DEVEN HERNANDEZ MD Acute Abd Series (11/03/16 10:19) Urinalysis (11/03/16 10:19) Urine Bedside (11/03/16 10:19) Amylase (11/03/16 10:36) Cbc With Automated Diff (11/03/16 10:36) Comprehensive Metabolic Panel (11/03/16 10:36) Lipase (11/03/16 10:36) Saline Lock/Iv-Start (11/03/16 10:36) Lactated Ringers (Lr 1000 Ml Iv Solution (11/03/16 10:36) Ondansetron Injection (Zofran Injectio (11/03/16 10:45) Famotidine Injection (Pepcid Injection) (11/03/16 10:36) D5 Ns 1000 Ml Iv Solution (Dextrose 5%/0 (11/03/16 11:36) Medications Given in ED Current Medications Medications Dose Ordered Sig/Jovani Route Start Time Stop Time Status Last Admin Dose Admin Lactated Ringer's 1,000 ml @ 0 mls/hr Q0M ONCE IV 11/03/16 10:36 11/03/16 10:38 DC 11/03/16 10:49 0 MLS/HR Ondansetron HCl 4 mg ONCE ONCE IVP 11/03/16 10:45 11/03/16 10:46 DC 11/03/16 10:49 4 MG Vital Signs/I&O Vital Sign - Last 12Hours 11/03/16 10:24 Temp 97.8 Pulse 81 Resp 18 B/P (MAP) 156/100 Pulse Ox 96 O2 Delivery Room Air Blood Pressure Mean: 118 Point of Care Testing Urine -Bedside: Negative Progress Note : Progress Note Seen and evaluated. IV, labs, UA, acute abdominal series, lactated Ringer's 1 L bolus, Zofran 4 mg IV and Pepcid 20 mg IV ordered. Monitor patient. 1130: Improved overall. 2+ ketones noted in urine. Patient is not diabetic. D5NS 1 L bolus ordered. Patient noted to have slightly lower potassium and usually is in the normal range. We are just going to do outpatient oral hydration with a left leg containing fluids. I did discuss the case with Dr. Vasques he is okay with this plan. She'll follow-up with him if needed on Sunday. 1220: Remains improved. Discharged home with return precautions. Patient verbalize understanding instructions and agreement with plan. Diagnostic Imaging Diagonstic Imaging: Xray Plain Films/CT/US/NM/MRI: chest, abdomen Comments VIA [facility]. [place], [place] NAME: CHESTER FAJARDO [facility] REC#: [id number] PT STATUS: REG ER : 1980 PHYSICIAN: DEVEN HERNANDEZ MD ADMIT DATE: 11/03/16/ER Draft Date of Exam:11/03/16 ACUTE ABD SERIES EXAMINATION: Acute abdominal series. INDICATION: Nausea and vomiting. FINDINGS: The PA chest demonstrates clear lungs and a normal sized heart. No effusion or pneumothorax. The mediastinum and carrillo appear unremarkable. The abdominal views demonstrate no pneumoperitoneum and no dilated bowel loops. No significant air/fluid levels are seen. Small amounts of fecal material are seen in the colon. Surgical clips in the upper right abdomen are seen. There is a 2 mm calcification in the left side of the pelvis close to the course of the distal left ureter but this was present on the 06/21/2016 exam, suggestive of a phlebolith. IMPRESSION: No acute process. Dictated on workstation # [id number] Dict: 11/03/16 1044 Trans: 11/03/16 1048 [id number] Interpreted by: JODI LEGER MD Electronically signed by: Departure Impression Impression: Primary Impression: Nausea and vomiting Qualified Codes: R11.2 - Nausea with vomiting, unspecified Additional Impression: Hypokalemia Disposition: 01 HOME, SELF-CARE Condition: Improved Departure-Patient Inst. Decision time for Depature: 12:26 Referrals: CRISTA BLOOM DO (PCP) Primary Care Physician AIMEE CURRIE APRN (Family) Primary Care Physician LEONORA VASQUES DO Patient Instructions: Hypokalemia (DC), Nausea and Vomiting, Adult (DC) Add. Discharge Instructions: All discharge instructions reviewed with patient and/or family. Voiced understanding. Continue home medications as directed. Follow-up with Dr. Vasques on Sunday for recheck and further evaluation if not improved. Return for worse pain, fever, vomiting, weakness, breathing problems or other concerns as needed. Clear liquid diet for 24 hours and then advance as tolerated. You should use electrolyte replacement fluids such as Gatorade or similar to help improve your potassium level while on clear liquid diet. After you may eat potassium rich foods as tolerated. Copy Copies To 1: LEONORA VASQUES TIMOTHY D MD Nov 03, 2016 10:41
[2016-11-03] MEDS ORDERED: ONDANSETRON 4 MG/2 ML (SDV) Z0FRAN IVP ONE (10:45)
--- NOTE | 2016-11-03 10:49 | Diagnostic Imaging Report ---
EXAMINATION: Acute abdominal series. INDICATION: Nausea and vomiting. FINDINGS: The PA chest demonstrates clear lungs and a normal sized heart. No effusion or pneumothorax. The mediastinum and carrillo appear unremarkable. The abdominal views demonstrate no pneumoperitoneum and no dilated bowel loops. No significant air/fluid levels are seen. Small amounts of fecal material are seen in the colon. Surgical clips in the upper right abdomen are seen. There is a 2 mm calcification in the left side of the pelvis close to the course of the distal left ureter but this was present on the 06/21/2016 exam, suggestive of a phlebolith. IMPRESSION: No acute process. Dictated by: Dictated on workstation # [id number]
[2016-11-03 10:54] LABS: BASOPHILS % (AUTO) 0 % (0-10); EOSINOPHILS # (AUTO) 0.1 10^3/uL (0.0-0.3); EOSINOPHILS % (AUTO) 1 % (0-10); LYMPHOCYTES % (AUTO) 20 % (12-44); MEAN CORPUSCULAR HEMOGLOBIN 27 PG (25-34); MEAN CORPUSCULAR HGB CONC 34 G/DL (32-36); MEAN CORPUSCULAR VOLUME 80 FL (80-99); MEAN PLATELET VOLUME 9.9 FL (7.4-10.4); MONOCYTES # (AUTO) 0.5 X 10^3 (0.0-1.0); MONOCYTES % (AUTO) 5 % (0-12); NEUTROPHILS # (AUTO) 7.4 X 10^3 (1.8-7.8); NEUTROPHILS % (AUTO) 73 % (42-75); PLATELET COUNT 378 10^3/uL (130-400); RED BLOOD COUNT 5.55 10^6/uL (4.35-5.85); RED CELL DISTRIBUTION WIDTH 14.6 % (10.0-14.5); WHITE BLOOD COUNT 10.1 10^3/uL (4.3-11.0)
[2016-11-03 11:10] LABS: ALANINE AMINOTRANSFERASE 21 U/L (0-55); ALBUMIN 4.6 GM/DL (3.2-4.5); AMYLASE 60 U/L (25-125); ANION GAP 15 MMOL/L (5-14); ASPARTATE AMINO TRANSFERASE 23 U/L (5-34); BLOOD UREA NITROGEN 5 MG/DL (7-18); BUN/CREATININE RATIO 6 (0-20); CARBON DIOXIDE 22 MMOL/L (21-32); CHLORIDE 106 MMOL/L (98-107); CREATININE SERUM 0.83 MG/DL (0.60-1.30); GFR ESTIMATED > 60; GLUCOSE 102 MG/DL (70-105); HEMOLYSIS 6 (-100-29); LIPASE 15 U/L (8-78); LIPEMIA 2 (-100-49); SODIUM 143 MMOL/L (135-145); TOTAL PROTEIN 8.5 GM/DL (6.4-8.2)
[2016-11-03] MEDS ORDERED: D5 NS 1000 ML IV SOLUTION 1,000 ML IV STA (11:36)
[2016-11-03 12:41] VITALS: BP 148/88
--- OUTSIDE RECORDS SUMMARY | 2016-11-06 14:45 | XMS REPORT | Continuity of Care Document ---
Author Author [facility] Address Unknown Phone Unavailable Allergies Active Description Code Type Severity Reaction Onset Reported/Identified Relationship to Patient Clinical Status Yes No Known Drug Allergies [id number] Drug Allergy Unknown N/ A 06/19/2016 Medications [...] APRNJOSHUA Brooks V73.81 HPV SCREENING 08/31/2014 NORMA RECORDS TECHNICIANJAZLYNJM A V76.2 CERVICAL CANCER SCREENING (PAP SMEAR) [...] 04/02/2009 53.43 OTHER LAPAROSCOPIC UMBILICAL HERNIORRHAP 04/02/2009 71626 TEST, URINE (IN-HOUSE) 10/21/2013 70666 TB TEST INTRADERMAL 02/11/2014 74967 TEST, URINE (IN-HOUSE) 02/26/2014 29625 US PELVIC COMPL (REFLEX CPT- 99550) 09/01/2014 Q0091 PAP SMEAR OBTAIN SMEAR 09/01/2014 15643 PAP SMEAR 2014 Results Test Result Range [...] Status Pt. Type Provider Facility Loc./Unit Complaint [id number] 08/31/2014 17:49:00 08/31/2014 23: 59:59 CLS Outpatient JM GREEN APRN [id number] 02/26/2014 18:21:00 02/26/2014 23: 59:59 CLS Outpatient ANA PAULA SERNA APRN [id number] 02/11/2014 17:36:00 02/11/2014 23: 59:59 CLS Outpatient RUPA URRUTIA APRN [id number] 10/21/2013 17:30:00 10/21/2013 23: 59:59 CLS Outpatient CRISTA BLOOM DO [id number] 07/07/2011 08:21:00 07/07/2011 23: 59:59 CLS Outpatient
== END 2016-11-03 12:41 | disposition home or self-care (01) ==
LOC: EDUNIT# 09:58 → ER 10:00
DX: E87.6 Hypokalemia (principal); R11.2 Nausea with vomiting, unspecified; K21.9 Gastro-esophageal reflux disease without esophagitis
CPT/HCPCS: 36415; 74022; 80053; 81000; 82150; 83690; 84703; 85025

== ENCOUNTER 2016-11-05 08:21 | Emergency (ER) | payer BC ==
[~2016-11-05] VITALS: Ht 170.2 cm; Wt 75.3 kg
--- NOTE | 2016-11-05 10:10 | ED GI ---
General Chief Complaint: Abdominal/GI Problems Stated Complaint: VOMITING Nursing Triage Note: ADM TO ED REPORTS FEELING WEAK ALL OVER,WTIH VOMITING WAS DISCHARGE FROM HOSPITAL ON SUNDAY. HAD UPPER GI ON SUNDAY WHICH SHOWED SHE HAD A HITIAL HERNIA. Sepsis Screen: No Definite Risk Source of Information: Patient Exam Limitations: No Limitations History of Present Illness Time Seen By Provider: 10:08 Initial Comments To ER with nausea and general malaise as well as being weak all over. She was seen here in the emergency room 2 days ago for the same which followed her having an EGD the day before. She is now concerned that she may have a tickborne illness. She has no fevers or joint pains., No rash or myalgias. She was however, bitten by a tick on the right side of the neck several months ago. No diarrhea, only nausea and vomiting. She does state that she [facility]. Timing/Duration: 2-3 Days Severity/Quality: Moderate Activities at Onset: None Allergies and Home Medications Allergies Coded Allergies: No Known Drug Allergies (Verified , 10/12/08) Home Medications Amoxicillin 500 Mg Tablet, 1,000 MG PO BID, (Reported) Clarithromycin 500 Mg Tablet, 500 MG PO BID, (Reported) Ferrous Sulfate 325 Mg Tablet, 325 MG PO BID, (Reported) Loratadine 10 Mg Tablet, 10 MG PO DAILY, (Reported) Pantoprazole Sodium 40 Mg Tablet.dr, 40 MG PO DAILY, #3 Ref 5 Prescribed by: LEONORA VASQUES on 11/02/16 1512 Sucralfate 1 Gm Tablet, 1 GM PO QID, #120 Prescribed by: LEONORA VASQUES on 11/02/16 1512 Review of Systems Constitutional: see HPI, No chills, No fever EENTM: No Symptoms Reported Respiratory: No Symptoms Reported Cardiovascular: No Symptoms Reported Gastrointestinal: See HPI, Denies Abdominal Pain, Nausea, Vomiting Genitourinary: No Symptoms Reported Musculoskeletal: no symptoms reported Skin: no symptoms reported Endocrine: No Symptoms Reported Past Xzbrmky-Udcvtl-Xtqmjj Hx Patient Social History Alcohol Use: Denies Use Recreational Drug Use: No Smoking Status: Never a Smoker 2nd Hand Smoke Exposure: No Recent Foreign Travel: No Contact w/Someone Who Travel: No Recent Infectious Disease Expo: No Recent Hopitalizations: No Immunizations Up To Date Tetanus Booster (TDap): Unknown Date of Influenza Vaccine: Mar 14, 2016 Seasonal Allergies Seasonal Allergies: Yes Surgeries HX Surgeries: Yes (FOOT SX, D&C) Surgeries: Appendectomy, Gallbladder Respiratory Hx Respiratory Disorders: No Cardiovascular Hx Cardiac Disorders: No Neurological Hx Neurological Disorders: Yes Neurological Disorders: Headaches /Migraines Reproductive System Hx Reproductive Disorders: No Genitourinary Hx Genitourinary Disorders: No Gastrointestinal Hx Gastrointestinal Disorders: Yes Gastrointestinal Disorders: Gastroesophageal Reflux Musculoskeletal Hx Musculoskeletal Disorders: No Endocrine Hx Endocrine Disorders: No HEENT HX ENT Disorders: Yes (GLASSES) Loss of Vision: Right Hearing Impairment: Denies Cancer Hx Cancer: No Psychosocial Hx Psychiatric Problems: No Integumentary HX Skin/Integumentary Disorder: No Blood Transfusions Hx Blood Disorders: Yes (ANEMIA) Family Medical History Significant Family History: No Pertinent Family Hx Physical Exam Vital Signs VS - Last 72 Hours, by Label 11/05/16 09:00 Temp 97.8 Pulse 79 Resp 18 B/P (MAP) 145/105 Pulse Ox 98 Capillary Refill : Less Than 3 Seconds General Appearance: WD/WN, no apparent distress HEENT: PERRL/EOMI, normal ENT inspection Respiratory: no respiratory distress, no accessory muscle use Cardiovascular: regular rate, rhythm, no JVD Gastrointestinal: normal bowel sounds, non tender, soft Extremities: normal range of motion, non-tender Neurologic/Psychiatric: alert, normal mood/affect, oriented x 3 Skin: normal color, warm/dry Progress/Results/Core Measures Results/Orders Lab Results Laboratory Tests Test 11/05/16 10:00 11/05/16 10:19 Range/Units Urine Color YELLOW Urine Clarity SLIGHTLY CLOUDY Urine pH 8 5-9 Urine Specific [place] 1.010 L 1.016-1.022 Urine Protein NEGATIVE NEGATIVE Urine Glucose (UA) NEGATIVE NEGATIVE Urine Ketones 3+ H NEGATIVE Urine Nitrite NEGATIVE NEGATIVE Urine Bilirubin NEGATIVE NEGATIVE Urine Urobilinogen NORMAL NORMAL MG/DL Urine Leukocyte Esterase NEGATIVE NEGATIVE Urine RBC (Auto) NEGATIVE NEGATIVE Urine RBC NONE /HPF Urine WBC RARE /HPF Urine Squamous Epithelial Cells 2-5 /HPF Urine Crystals NONE /LPF Urine Bacteria TRACE /HPF Urine Casts NONE /LPF Urine Mucus NEGATIVE /LPF Urine Culture Indicated NO White Blood Count 9.4 4.3-11.0 10^3/uL Red Blood Count 5.39 4.35-5.85 10^6/uL Hemoglobin 14.8 11.5-16.0 G/DL Hematocrit 43 35-52 % Mean Corpuscular Volume 79 L 80-99 FL Mean Corpuscular Hemoglobin 28 25-34 PG Mean Corpuscular Hemoglobin Concent 35 32-36 G/DL Red Cell Distribution Width 14.4 10.0-14.5 % Platelet Count 359 130-400 10^3/uL Mean Platelet Volume 9.8 7.4-10.4 FL Neutrophils (%) (Auto) 72 42-75 % Lymphocytes (%) (Auto) 20 12-44 % Monocytes (%) (Auto) 6 0-12 % Eosinophils (%) (Auto) 1 0-10 % Basophils (%) (Auto) 0 0-10 % Neutrophils # (Auto) 6.8 1.8-7.8 X 10^3 Lymphocytes # (Auto) 1.9 1.0-4.0 X 10^3 Monocytes # (Auto) 0.6 0.0-1.0 X 10^3 Eosinophils # (Auto) 0.1 0.0-0.3 10^3/uL Basophils # (Auto) 0.0 0.0-0.1 10^3/uL Sodium Level 142 135-145 MMOL/L Potassium Level 2.7 L 3.6-5.0 MMOL/L Chloride Level 103 98-107 MMOL/L Carbon Dioxide Level 24 21-32 MMOL/L Anion Gap 15 H 5-14 MMOL/L Blood Urea Nitrogen 4 L 7-18 MG/DL Creatinine 0.82 0.60-1.30 MG/DL Estimat Glomerular Filtration Rate > 60 BUN/Creatinine Ratio 5 0-20 Glucose Level 103 70-105 MG/DL Calcium Level 10.2 H 8.5-10.1 MG/DL Total Bilirubin 1.1 H 0.1-1.0 MG/DL Aspartate Amino Transf (AST/SGOT) 25 5-34 U/L Alanine Aminotransferase (ALT/SGPT) 19 0-55 U/L Alkaline Phosphatase 79 40-136 U/L Total Protein 8.3 H 6.4-8.2 GM/DL Albumin 4.5 3.2-4.5 GM/DL Lipase 13 8-78 U/L My Orders Orders - MONET CORREA X [employer] TECHNICIAN Cbc With Automated Diff (11/05/16 10:07) Comprehensive Metabolic Panel (11/05/16 10:07) Lipase (11/05/16 10:07) Ua Culture If Indicated (11/05/16 10:07) Ondansetron Injection (Zofran Injectio (11/05/16 10:15) Prochlorperazine Injection (Compazine In (11/05/16 10:15) Saline Lock/Iv-Start (11/05/16 10:13) Lorazepam Injection (Ativan Injection) (11/05/16 10:45) Potassium Chloride Powder (Klor Con 20 M (11/05/16 11:00) Potassium Cl 10meq/50ml Ivpb (Kcl 10 Meq (11/05/16 11:00) Ns Iv 500 Ml (Sodium Chloride 0.9%) (11/05/16 11:15) Ns Iv 500 Ml (Sodium Chloride 0.9%) (11/05/16 10:58) Medications Given in ED Current Medications Medications Dose Ordered Sig/Jovani Route Start Time Stop Time Status Last Admin Dose Admin Lorazepam 1 mg ONCE ONCE IVP 11/05/16 10:45 11/05/16 10:46 DC 11/05/16 10:49 1 MG Ondansetron HCl 4 mg ONCE ONCE IVP 11/05/16 10:15 11/05/16 10:16 DC 11/05/16 10:23 4 MG Potassium Chloride 40 meq ONCE ONCE PO 11/05/16 11:00 11/05/16 11:01 DC 11/05/16 11:14 40 MEQ Potassium Chloride 50 ml @ 50 mls/hr ONCE ONCE IV 11/05/16 11:00 11/05/16 11:59 11/05/16 11:11 50 MLS/HR Prochlorperazine Edisylate 10 mg ONCE ONCE IV 11/05/16 10:15 11/05/16 10:16 DC 11/05/16 10:24 10 MG Sodium Chloride 500 ml @ ud STK-MED ONCE .ROUTE 11/05/16 10:58 11/05/16 11:03 DC 11/05/16 11:11 500 MLS/HR Vital Signs/I&O Vital Sign - Last 12Hours 11/05/16 09:00 Temp 97.8 Pulse 79 Resp 18 B/P (MAP) 145/105 Pulse Ox 98 Blood Pressure Mean: 118 Departure Communication Progress Notes 1119- patient states that she is feeling somewhat better, still weak but her nausea is controlled. We will give potassium chloride 10 mEq IV over 1 hour, 40 mEq orally Impression Impression: Primary Impression: Nausea and vomiting Additional Impressions: Anxiety Hypokalemia Disposition: ADMITTED INPATIENT Condition: Stable Departure-Patient Inst. Decision time for Depature: 10:56 Referrals: CRISTA BLOOM DO (PCP) Primary Care Physician AIMEE CURRIE APRN (Family) Primary Care Physician Patient Instructions: Hypokalemia, Nausea and Vomiting, Adult Add. Discharge Instructions: All discharge instructions reviewed with patient and/or family. Voiced understanding. Scripts Potassium Chloride (Potassium Chloride) 20 Meq Packet 40 MEQ PO DAILY, #8 PACKET Prov: MONET CORREA APRN 11/05/16 Prochlorperazine Maleate (Compazine) 10 Mg Tablet 10 MG PO TID Y for NAUSEA/VOMITING-1ST LINE, #10 TAB Prov: MONET CORREA APRN 11/05/16 MONET CORREA APRN Nov 05, 2016 10:10
[2016-11-05] MEDS ORDERED: PROCHLORPERAZINE 10 MG/2ML INJ (COMPAZINE) IV ONE (10:15)
[2016-11-05] MEDS ORDERED: ONDANSETRON 4 MG/2 ML (SDV) Z0FRAN IVP ONE (10:15)
[2016-11-05 10:16] LABS: BILIRUBIN,URINE NEGATIVE (NEGATIVE); KETONES,URINE 3+ (NEGATIVE); LEUKOCYTE ESTERASE ,URINE NEGATIVE (NEGATIVE); NITRITE,URINE NEGATIVE (NEGATIVE); PH,URINE 8 (5-9); PROTEIN,URINE NEGATIVE (NEGATIVE); UROBILINOGEN,URINE NORMAL (NORMAL)
[2016-11-05 10:28] LABS: BASOPHILS % (AUTO) 0 % (0-10); EOSINOPHILS # (AUTO) 0.1 10^3/uL (0.0-0.3); EOSINOPHILS % (AUTO) 1 % (0-10); LYMPHOCYTES # (AUTO) 1.9 X 10^3 (1.0-4.0); LYMPHOCYTES % (AUTO) 20 % (12-44); MEAN CORPUSCULAR HEMOGLOBIN 28 PG (25-34); MEAN CORPUSCULAR HGB CONC 35 G/DL (32-36); MEAN CORPUSCULAR VOLUME 79 FL (80-99); MEAN PLATELET VOLUME 9.8 FL (7.4-10.4); MONOCYTES # (AUTO) 0.6 X 10^3 (0.0-1.0); MONOCYTES % (AUTO) 6 % (0-12); NEUTROPHILS # (AUTO) 6.8 X 10^3 (1.8-7.8); NEUTROPHILS % (AUTO) 72 % (42-75); PLATELET COUNT 359 10^3/uL (130-400); RED BLOOD COUNT 5.39 10^6/uL (4.35-5.85); RED CELL DISTRIBUTION WIDTH 14.4 % (10.0-14.5); WHITE BLOOD COUNT 9.4 10^3/uL (4.3-11.0)
[2016-11-05] MEDS ORDERED: LORazepam INJ 2 MG/ML (ATIVAN) VIAL IVP ONE (10:45)
[2016-11-05 10:48] LABS: ALANINE AMINOTRANSFERASE 19 U/L (0-55); ALBUMIN 4.5 GM/DL (3.2-4.5); ANION GAP 15 MMOL/L (5-14); ASPARTATE AMINO TRANSFERASE 25 U/L (5-34); BILIRUBIN,TOTAL 1.1 MG/DL (0.1-1.0); BLOOD UREA NITROGEN 4 MG/DL (7-18); BUN/CREATININE RATIO 5 (0-20); CALCIUM 10.2 MG/DL (8.5-10.1); CARBON DIOXIDE 24 MMOL/L (21-32); CHLORIDE 103 MMOL/L (98-107); CREATININE SERUM 0.82 MG/DL (0.60-1.30); GFR ESTIMATED > 60; GLUCOSE 103 MG/DL (70-105); HEMOLYSIS 6 (-100-29); ICTERUS 1.2 (-100-1.9); LIPASE 13 U/L (8-78); LIPEMIA 1 (-100-49); POTASSIUM 2.7 MMOL/L (3.6-5.0); SODIUM 142 MMOL/L (135-145); TOTAL PROTEIN 8.3 GM/DL (6.4-8.2)
[2016-11-05 10:55] LABS: WBC,URINE RARE /HPF
[2016-11-05] MEDS ORDERED: NS IV 500 ML 500 ML ONE (10:58)
[2016-11-05] MEDS ORDERED: KCL 20 MEQ POWDER FOR ORAL SOLUTION PO ONE (11:00)
[2016-11-05] MEDS ORDERED: POTASSIUM CL 10MEQ/50ML IVPB 50 ML IV ONE (11:00)
[2016-11-05] MEDS ORDERED: NS IV 500 ML 500 ML IV SCH (11:15)
[2016-11-05] MEDS ORDERED: POTA20PA28 PO (12:00)
[2016-11-05] MEDS ORDERED: PROC-1 PO (12:00)
[2016-11-05 12:20] VITALS: BP 145/102
--- OUTSIDE RECORDS SUMMARY | 2016-11-06 18:25 | XMS REPORT | Continuity of Care Document ---
Author Author Formerly [facility], [facility] Address Unknown Phone Unavailable Allergies Active Description Code Type Severity Reaction Onset Reported/Identified Relationship to Patient Clinical Status Yes No Known Drug Allergies [id number] Drug Allergy Unknown N/ A 06/19/2016 Medications [...] APRNJOSHUA Brooks V73.81 HPV SCREENING 08/31/2014 NORMA ARM MAKERJAZLYNJM A V76.2 CERVICAL CANCER SCREENING (PAP SMEAR) [...] K63.89 OTHER SPECIFIED DISEASES OF INTESTINE 06/22/2016 AALN MERCADO MD Ot K63.3 ULCER OF INTESTINE [...] 04/02/2009 53.43 OTHER LAPAROSCOPIC UMBILICAL HERNIORRHAP 04/02/2009 77553 TEST, URINE (IN-HOUSE) 10/21/2013 05782 TB TEST INTRADERMAL 02/11/2014 91585 TEST, URINE (IN-HOUSE) 02/26/2014 41625 US PELVIC COMPL (REFLEX CPT- 62735) 09/01/2014 Q0091 PAP SMEAR OBTAIN SMEAR 09/01/2014 77443 PAP SMEAR 2014 Results Test Result Range [...] Status Pt. Type Provider Facility Loc./Unit Complaint [id number] 08/31/2014 17:49:00 08/31/2014 23: 59:59 CLS Outpatient JM GREEN APRN [id number] 02/26/2014 18:21:00 02/26/2014 23: 59:59 CLS Outpatient ANA PAULA SERNA APRN [id number] 02/11/2014 17:36:00 02/11/2014 23: 59:59 CLS Outpatient RUPA URRUTIA APRN [id number] 10/21/2013 17:30:00 10/21/2013 23: 59:59 CLS Outpatient CRISTA BLOOM DO [id number] 07/07/2011 08:21:00 07/07/2011 23: 59:59 CLS Outpatient
== END 2016-11-05 12:19 | disposition home or self-care (01) ==
LOC: EDUNIT# 08:21 → ER 08:22
DX: R11.2 Nausea with vomiting, unspecified (principal); E87.6 Hypokalemia; F41.9 Anxiety disorder, unspecified; Z79.899 Other long term (current) drug therapy
CPT/HCPCS: 36415; 80053; 81000; 83690; 85025

== ENCOUNTER → 2017-05-03 | Outpatient (CLI) | payer BC, OTHER ==
[~2017-05-03] MED LIST changes: +POTA20PA28 PO; +PROC-1 PO
--- NOTE | 2017-05-03 18:26 | Diagnostic Imaging Report ---
INDICATION: Neck pain. FINDINGS: Odontoid is intact. There is some reversal of cervical lordosis with trace C5 on C6 grade 1 retrolisthesis. The posterior cortices were off about 2 mm. Body heights are maintained. Prevertebral space is normal. No acute endplate irregularity. IMPRESSION: Degenerative changes, greatest at the mildly malaligned C5-C6 level. No acute bony abnormality. Dictated by: Dictated on workstation # [id number]
== END ==
LOC: RAD 18:05
PROVIDERS: ATTEND Nurse Practitioner Family
DX: M47.812 Spondylosis without myelopathy or radiculopathy, cervical region (principal)
CPT/HCPCS: 72040

== ENCOUNTER → 2017-05-22 | Outpatient (CLI) | payer BC ==
--- NOTE | 2017-05-22 08:41 | Diagnostic Imaging Report ---
PROCEDURE: MR imaging cervical spine without contrast. TECHNIQUE: Multiplanar, multisequence MR imaging of the cervical spine was performed without contrast. DATE: 05/22/2017. COMPARISON: Cervical spine radiographs 05/03/2017. INDICATION: 36-year-old female, neck pain for two months. FINDINGS: There is a slight reversal of the normal cervical lordosis. There are minimal endplate degenerative changes at C5-C6 and C6-C7. There is no pronounced cervical disc height loss. The additional bone marrow signal is unremarkable. The visualized spinal cord is unremarkable. C2-C3: There is no disc bulge. The uncovertebral and facet joints are unremarkable. There is no foraminal narrowing. There is no spinal canal stenosis. C3-C4: There is no disc bulge. The uncovertebral and facet joints are unremarkable. There is no foraminal narrowing. There is no spinal canal stenosis. C4-C5: There is no disc bulge. The uncovertebral and facet joints are unremarkable. There is no foraminal narrowing. There is no spinal canal stenosis. C5-C6: There is a small posterior disc osteophyte complex The uncovertebral and facet joints are unremarkable. There is no foraminal narrowing. There is no spinal canal stenosis. C6-C7: There is no disc bulge. The uncovertebral and facet joints are unremarkable. There is no foraminal narrowing. There is no spinal canal stenosis. C7-T1: There is no disc bulge. The uncovertebral and facet joints are unremarkable. There is no foraminal narrowing. There is no spinal canal stenosis. IMPRESSION: 1. C5-C6 small posterior disc osteophyte complex without foraminal or spinal stenosis. 2. Mild reversal of the normal cervical lordosis. 3. Additional MRI evaluation of the cervical spine is unremarkable. Dictated by: Dictated on workstation # [id number]
== END ==
LOC: RAD 07:43
PROVIDERS: ATTEND Nurse Practitioner Family
DX: M25.78 Osteophyte, vertebrae (principal); M43.10 Spondylolisthesis, site unspecified
CPT/HCPCS: 72141

== ENCOUNTER → 2017-06-29 | Outpatient (CLI) | payer BC ==
[~2017-06-29] MED LIST changes: -FERR-74 PO; +FERR325T18 PO
--- NOTE | 2017-06-29 18:09 | Diagnostic Imaging Report ---
INDICATION: Routine screening. No prior mammograms are available for comparison. This is a baseline study. The current study was also evaluated with a Computer Aided Detection (CAD) system. Both breasts demonstrate moderate parenchymal density and heterogeneity, limiting the sensitivity of mammography. No dominant mass or malignant appearing microcalcifications are seen. There are benign calcifications on the left. The axillae are unremarkable. IMPRESSION: No mammographic features suspicious for malignancy are identified. ACR BI-RADS Category 2: Benign findings. Result letter will be mailed to the patient. Note: At least 10% of breast cancer is not imaged by mammography. Dictated by: Dictated on workstation # [id number]
== END ==
LOC: RAD 13:27
PROVIDERS: ATTEND Obstetrics & Gynecology
DX: Z12.31 Encounter for screening mammogram for malignant neoplasm of breast (principal)
CPT/HCPCS: 77067

== ENCOUNTER → 2017-07-19 | Outpatient (CLI) | payer BC ==
--- NOTE | 2017-07-19 09:28 | Diagnostic Imaging Report ---
PROCEDURE: CT sinuses without contrast TECHNIQUE: Multiple contiguous axial images were obtained through the sinuses without the use of intravenous contrast. Coronal and sagittal reformations were then performed. INDICATION: Chronic sinusitis. FINDINGS: The frontal sinus is clear. Ethmoid air cells are clear. The sphenoid sinus is clear. Maxillary sinuses are well aerated. No mucosal thickening or air-fluid levels are seen. The ostiomeatal complexes are patent bilaterally. There is nasal septal deviation to the left. There is a rita bullosa on the right. The mastoid air cells are well aerated. IMPRESSION: No evidence of sinusitis. Dictated by: Dictated on workstation # [id number]
== END ==
LOC: RAD 08:04
PROVIDERS: ATTEND Otolaryngology Otolaryngology/Facial Plastic Surgery
DX: J32.4 Chronic pansinusitis (principal)
CPT/HCPCS: 70486

== ENCOUNTER 2019-03-26 11:44 | Outpatient (CLI) | payer BC ==
[~2019-03-26] VITALS: Ht 167.7 cm; Wt 80.0 kg
[~2019-03-26 11:44] MED LIST changes: +IBUP-2185 PO; -IBUP200C75 PO; -OMEP20CA12 PO; +OMEP20CA13 PO; -OXYC-202 PO; +OXYC1TAB12 PO
[2019-03-26 11:59] VITALS: BP 136/98
[2019-03-26 12:32] LABS: BASOPHILS % (AUTO) 0 % (0-10); EOSINOPHILS # (AUTO) 0.2 10^3/uL (0.0-0.3); EOSINOPHILS % (AUTO) 2 % (0-10); HEMATOCRIT 43 % (35-52); HEMOGLOBIN 13.8 G/DL (11.5-16.0); LYMPHOCYTES # (AUTO) 2.7 X 10^3 (1.0-4.0); LYMPHOCYTES % (AUTO) 31 % (12-44); MEAN CORPUSCULAR HEMOGLOBIN 25 PG (25-34); MEAN CORPUSCULAR HGB CONC 33 G/DL (32-36); MEAN CORPUSCULAR VOLUME 78 FL (80-99); MEAN PLATELET VOLUME 9.7 FL (7.4-10.4); MONOCYTES # (AUTO) 0.5 X 10^3 (0.0-1.0); MONOCYTES % (AUTO) 5 % (0-12); NEUTROPHILS # (AUTO) 5.3 X 10^3 (1.8-7.8); NEUTROPHILS % (AUTO) 62 % (42-75); PLATELET COUNT 407 10^3/uL (130-400); WHITE BLOOD COUNT 8.6 10^3/uL (4.3-11.0)
[2019-03-26] MEDS ORDERED: PROP20TA5 PO (12:33)
[2019-03-26] MEDS ORDERED: PANT40TA3 PO (12:33)
[2019-03-26] MEDS ORDERED: RIZA10TA20 PO (12:33)
[2019-03-26] MEDS ORDERED: LORA10TA52 PO (12:33)
[2019-03-26] MEDS ORDERED: TIZA6CAP9 PO (12:33)
[2019-03-28] MEDS ORDERED: DOCU-143 PO (07:58)
[2019-03-28] MEDS ORDERED: IBUP-1780 PO (07:58)
[2019-03-28] MEDS ORDERED: OXYC1TAB87 PO (07:58)
== END 2019-03-26 12:20 | disposition home or self-care (01) ==
LOC: PREOP 11:44
PROVIDERS: ATTEND Obstetrics & Gynecology
DX: Z01.812 Encounter for preprocedural laboratory examination (principal); N92.1 Excessive and frequent menstruation with irregular cycle; N93.8 Other specified abnormal uterine and vaginal bleeding; N39.3 Stress incontinence (female) (male); D64.9 Anemia, unspecified
CPT/HCPCS: 36415; 84703; 85025; 87081

== ENCOUNTER 2019-03-28 10:00 | Day surgery (SDC) | payer BC ==
[2019-03-28] VITALS (14 sets, daily range): BP systolic 120–140; BP diastolic 76–95
[~2019-03-28] VITALS: Ht 167 cm; Wt 80.0 kg
--- NOTE | 2019-03-28 07:53 | Progress Note-Pre Operative ---
Pre-Operative Progress Note H&P Reviewed The H&P was reviewed, patient examined and no changes noted. Date Seen by Provider: Mar 28, 2019 Time Seen by Provider: 12:30 Date H&P Reviewed: Mar 28, 2019 Time H&P Reviewed: 12:30 Pre-Operative Diagnosis: DUB/uterovaginal prolapse/pressure incontinence TAMI BUCK MD Mar 28, 2019 07:53 POS
--- NOTE | 2019-03-28 07:54 | Progress Note-Post Operative ---
Post-Operative Progess Note Surgeon (s)/Ladle Operator (s) Surgeon TAMI BUCK MD Ladle Operator: Several Pre-Operative Diagnosis DUB/uterovaginal prolapse/pressure incontinence Post-Operative Diagnosis Same with extensive endometriosis and pelvic adhesions and with pathology pending Procedure & Operative Findings Date of Procedure 03/28/19 Procedure Performed/Findings TL H with BSO, extensive adhesiolysis and destruction of endometriosis and with anterior and posterior vaginal repairs with enterocele repair and with Dr. Johnson performing pubovaginal sling and cystoscopy Anesthesia Type GETA Estimated Blood Loss Estimated blood loss (mL): 300 mL Specimens/Packing Specimens Removed Uterus and fallopian tubes Packing: Kerlix gauze in the vagina TAMI BUCK MD Mar 28, 2019 07:54 POS
--- NOTE | 2019-03-28 07:59 | Discharge Instructions ---
Discharge Instructions Discharge Medications New, Converted or Re-Newed RX: RX on Chart Patient Instructions Return to The Hospital For: As directed Activity & Diet Discharge Diet: No Restrictions Activity as Tolerated: No Orders-Post D/C & Referrals Follow Up Appt: Return to clinic on Sunday, March 31, 2019 at 930 a.m. for staple removal Call to make follow up appt. for patient in 4 weeks. Activity: Rest for 24 hours, than as tolerated. Wound Care: May remove Band-Aid tomorrow. Replace as desired. Keep incisions clean and dry. Wash daily with soap and water. Please call in RX to patient pharmacy. Diet: As tolerated-Clear Liquids only if nauseated. shower or tub bathe as desired. No driving for 24 hours, no alcoholic beverages for 24 hours, and nothing per vagina (no tampons, douching, or intercourse) for 8 weeks. Patient to return to the clinic as soon as possible for: Temperature greater than 101F, Severe Pain, Foul discharge from incision or vagina, Excessive Bleeding (more than a period). TAMI BUCK MD Mar 28, 2019 07:59 POS
[~2019-03-28 10:00] MED LIST changes: +DOCU-143 PO; +IBUP-1780 PO; +LORA10TA52 PO; +OXYC1TAB87 PO; +PANT40TA3 PO; +PROP20TA5 PO; +RIZA10TA20 PO; +TIZA6CAP9 PO
[2019-03-28] MEDS ORDERED: ceFAZolin INJECTION 1,000 MG in WATER (STERILE) FOR INJECTION 10 ML IV ONE (10:15)
[2019-03-28] MEDS: LACTATED RINGERS 1,000 ML IV PRN ×3 (10:42→14:55)
[2019-03-28] MEDS ORDERED: fentaNYL INJECTION 100 MCG/2 ML AMP ONE ×3 (11:37→13:31)
[2019-03-28] MEDS ORDERED: proPOfol 200 MG/20 ML (DIPRIVAN) VIAL IV ONE (11:37)
[2019-03-28] MEDS ORDERED: LIDOCAINE PF 2% 5 ML (XYLOCAINE) VIAL ONE (11:37)
[2019-03-28] MEDS ORDERED: DEXAMETHASONE 10 MG/ML (DECADRON) 1 ML VIAL ONE (11:37)
[2019-03-28] MEDS ORDERED: SEVOFLURANE (ULTANE) 15 ML INHAL SOLN ONE ×8 (11:37→15:15)
[2019-03-28] MEDS ORDERED: ONDANSETRON 4 MG/2 ML (SDV) Z0FRAN ONE ×2 (11:37→14:24)
[2019-03-28] MEDS ORDERED: MIDAZOLAM 2 MG/2 ML (VERSED) VIAL ONE (11:37)
[2019-03-28] MEDS ORDERED: ROCURONIUM 10 MG/ML 5 ML SYRINGE IV ONE (11:45)
[2019-03-28] MEDS ORDERED: ESTRADIOL VAGINAL CREAM 42.5 GM (ESTRACE) VG ONE (11:53)
[2019-03-28] MEDS ORDERED: BUP/EPI 0.5% 1:200,000 (MARCAINE) 10ML VIAL IJ ONE (11:53)
[2019-03-28] MEDS ORDERED: GLYCOPYRROLATE 0.2 MG/ML (ROBINUL) 2 ML VIAL ONE ×3 (14:12→14:55)
[2019-03-28] MEDS ORDERED: NEOSTIGMINE 3 MG/3 ML VIAL ONE (14:12)
[2019-03-28] MEDS ORDERED: ONDANSETRON 4 MG/2 ML (SDV) Z0FRAN IVP PRN ×2 (14:15→15:45)
[2019-03-28] MEDS ORDERED: WATER (STERILE) FOR INJ 10 ML BTL INJ ONE (14:15)
[2019-03-28] MEDS ORDERED: oxyCODONE/APAP 5/325MG (PERCOCET 5) TABLET PO PRN (14:15)
[2019-03-28] MEDS ORDERED: BENZOCAINE/MENTHOL (DERMOPLAST) 56 ML CAN TP PRN (14:15)
[2019-03-28] MEDS ORDERED: PROMETHAZINE INJ 25 MG/ML (PHENERGAN) AMP IM PRN (14:15)
[2019-03-28] MEDS ORDERED: ESTROGENS CONJ IV 25 MG/5 ML (PREMARIN) VIAL IVP ONE (14:15)
[2019-03-28] MEDS ORDERED: MEPERIDINE (DEMEROL) INJ 100 MG/ML IM PRN (14:15)
[2019-03-28] MEDS ORDERED: HYDROmorphone 2 MG/ML VIAL (DILAUDID) ONE (14:23)
[2019-03-28] MEDS ORDERED: WATER (STERILE) FOR INJECTION 10 ML ONE (14:23)
[2019-03-28] MEDS ORDERED: KETOROLAC 30 MG/ML VIAL ONE (14:23)
[2019-03-28] MEDS ORDERED: ESTROGENS CONJ IV 25 MG/5 ML (PREMARIN) VIAL ONE (14:23)
[2019-03-28] MEDS ORDERED: MEPERIDINE (DEMEROL) INJ 50 MG/ML ONE (14:24)
[2019-03-28] MEDS ORDERED: morphine INJ 10 MG/ML 1ML (SYR OR VIAL) ONE (14:24)
--- NOTE | 2019-03-28 14:48 | Progress Note-Post Operative ---
Post-Operative Progess Note Surgeon (s)/Transonic Engineer (s) Surgeon ABRAHAM PAYTON MD Transonic Engineer: NONE Pre-Operative Diagnosis JHOAN Post-Operative Diagnosis SAME Procedure & Operative Findings Date of Procedure 03/28/19 Procedure Performed/Findings PVS AND CYSTOSCOPY Anesthesia Type GENERAL Estimated Blood Loss Estimated blood loss (mL): NONE Specimens/Packing Specimens Removed NONE Packing: Kerlix gauze in the vagina ABRAHAM PAYTON MD Mar 28, 2019 14:48 POS
[2019-03-28] MEDS: KETOROLAC 30 MG/ML VIAL IVP SCH ×2 (15:36→20:55)
[2019-03-28] MEDS ORDERED: PROMETHAZINE INJ 25 MG/ML (PHENERGAN) AMP IVP ONE (15:45)
[2019-03-28] MEDS ORDERED: HYDROmorphone 2 MG/ML VIAL (DILAUDID) IV ONE (15:45)
[2019-03-28] MEDS: morphine INJ 10 MG/ML 1ML (SYR OR VIAL) IVP ONE (16:07)
--- NOTE | 2019-03-28 16:35 | NUR ---
CHESTER FAJARDO TRANSFERRED TO WS ROOM 306 VIA PT BED ACC BY GLORIA CHI MINESWEEPING OFFICER AFTER A ROBOTIC ASSISTED TOTAL LAPARASCOPIC HYSTERECTOMY, BILATERAL SALINGECTOMY, ANTERIOR AND POSTERIOR REPAIR WITH ENTEROCELE REPAIR BY DR. BUCK AND A PUBOVAGINAL SLING AND CYSTOSCOPY BY DR. PAYTON. PT VERY DROOWSY AND AROUSES WHEN SPOKEN TO. FAMILY AT BEDSIDE. ORIENTED TO CALLLIGHT OPERATION. CHESTER FAJARDO AND FAMILY introduced to surroundings, call light, bed controls, phone, TV, temperature control, lights, meal times, smoking policy, visitor policy, side rail policy, bathrooms and showers. Patient Rights given to patient in the handbook.
--- NOTE | 2019-03-28 16:40 | NUR ---
PT ON O2 @ 3 LITERS/NC.
[2019-03-28] MEDS ORDERED: D5 LR IV SOLUTION 1,000 ML IV ONE (16:47)
[2019-03-28] MEDS: D5 LR IV SOLUTION 1,000 ML IV SCH ×2 (17:00→23:18)
--- NOTE | 2019-03-28 17:00 | NUR ---
IV PLACED ON PUMP WITH NEW TUBING. VSS. PT AROUSES BUT RELUCTANT TO GIVE ANY MORE PAIN MEDS AT THIS TIME. PT DRIFTS BACK TO SLEEP EASILY. BENITEZ PATENT TO DD WITH SMALL AMOUNT OF GILMA URINE. ABD SOFT AND OP SITES X3 D/I. VAGINAL PACKING IN PLACE. SCANT BLOOD ON V-PAD AND TAIL OF PACK. SIDE RAILS UP X4. PT TOOK A SIP OF WATER AND WENT BACK TO SLEEP. CONTINUOUS SPO2 MONITORING AND 30 MINUTE VS. O2 ON AT 3L/M/NC R/T DROWSY STATE. MAINTAINING SPO2 @99-100%.
--- NOTE | 2019-03-28 17:45 | NUR ---
SPOUSE WENT HOME R/T PT SLEEPING.
--- NOTE | 2019-03-28 18:30 | NUR ---
CONTINUES TO SLEEP. AROUSES AND OPENS EYES WHEN THIS RN IN THE ROOM. O2 DECREASED TO 2L/M/NC. ABD SOFT. NO ACTIVE BLEEDING AROUND PACKING. CONTINUOUS SPO2 MONITORING.
--- NOTE | 2019-03-28 21:15 | NUR ---
This rn called Dr Mueller to notify of urine output since arrival at 1900. New orders for increase in fluid administration rate received.
--- NOTE | 2019-03-28 23:17 | NUR ---
Patient urinary output approx 250mL of clear, yellow urine since IV fluid admin rate increased are 2125. Fluid rate decreased back down to 125mL/hr at this time. Patient voices no needs, pain or concerns.
--- NOTE | 2019-03-29 00:30 | OPERATIVE REPORT ---
DATE OF SERVICE: 03/28/2019 PREOPERATIVE DIAGNOSES: Dysfunctional uterine bleeding, chronic pelvic pain, uterovaginal prolapse, stress urinary incontinence. POSTOPERATIVE DIAGNOSES: Dysfunctional uterine bleeding, chronic pelvic pain, uterovaginal prolapse, stress urinary incontinence with extensive pelvic adhesions and endometriosis. OPERATIVE PROCEDURE: Total laparoscopic hysterectomy with extensive adhesiolysis as well as BSO and anterior, posterior vaginal repair with enterocele repair and pubovaginal sling and cystoscopy procedure by Dr. Bustamante. OPERATIVE DESCRIPTION: With the patient in supine position under satisfactory general anesthesia, she was repositioned in dorsal lithotomy position in the [facility] and prepped and draped in the usual fashion for abdominal and vaginal surgery. The urinary bladder was drained via Ames catheter to dependent drainage. Weighted speculum placed in posterior fornix of vagina, cervix exposed and grasped anteriorly with single tooth tenaculum. Uterus sounded to 12 cm with uterine sound. Cervix was then serially dilated with Joe dilators to accommodate a Gertrude II manipulator, which was placed using a 6 mm x 8 cm uterine probe and a 35 mm colpotomy ring. Sutures of #1 Vicryl were placed at the 3 and 9 o'clock position to affix the cervix to the manipulator. The patient was brought in low dorsal lithotomy position. The tenaculum and speculum were removed from the vagina. A 12 mm incision was made 5 cm superior to the umbilicus. Veress needle was placed through that incision into the abdominal cavity. Correct placement was confirmed with water drop test. The abdomen was insufflated with 2.4 liters of carbon dioxide. The Veress needle was removed and a 12 mm Optiview laparoscopic port placed. The abdominal wall was transilluminated and ports of 8 mm were placed through incisions of those sizes 8 cm lateral to the umbilicus and 2 cm superior to the umbilicus, one on each side. All three port sites were infiltrated with 0.25% Marcaine with epinephrine prior to incision and port placement. The patient now placed in Trendelenburg allowing the bowel was filled partially above the pelvis. There was some bowel adherent into the pelvis and there were extensive adhesions of the uterus, the fallopian tubes and the ovaries in the pelvis to the cul-de-sac to the uterus into the pelvic sidewalls. The da Sanya column was advanced on the patient and docked and then operative instrument placed in right and left lateral ports and I retired to the da Sanya console. At the console using a vessel sealer on the right and a bipolar fenestrated grasper on the left, the pelvis was first examined, finding again the extensive adhesions as noted. The appendix was surgically absent. Adhesions were taken down sharply and bluntly and with some electrocautery to free both fallopian tubes from their adhesions on and over the ovaries and then to free the ovaries from the ovarian fossae on each side and from the posterior surface of the uterus and from the cul-de-sac. There was obvious endometriosis in these areas with numerous small endometrioma throughout the pelvis with the ovaries eventually freed and the fallopian tubes freed. There were adhesions to the posterior lower uterine segment of the anterior wall of the sigmoid/rectosigmoid. Those adhesions were freed to allow access to the lower uterine segment. With that done, both ureters were identified. They were seemed to peristaltic. Attention was then turned to performing the hysterectomy. Right tube and ovary were grasped and elevated. Using the vessel sealer, the right IP ligament was clamped, cauterized and divided that was continued stepwise across the ovarian support structures across the broad ligament, across the round ligament and to the side of the uterus and then continued down the side of the uterus to the cardinal ligament until access was gained to the level of the uterine manipulator colpotomy ring. The same procedure performed on the left, allowing eventually for removal of both tubes and ovaries. There was extensive old blood released from the endometriomas. There was some bleeding from the dissections. The pelvis was irrigated at this point to improve exposure and then using a monopolar shear on the right and placing the vessel sealer, the anterior lower uterine segment peritoneum was divided. The bladder was dissected down off the lower uterine segment and colpotomy incision was started at 12 o'clock position. That incision was continued circumferentially until the entire colpotomy ring was exposed freeing the uterus, which was extracted through the vagina with the tubes and ovary still attached. The pelvis was irrigated again and then the vaginal cuff was closed with a single suture of V-Loc barbed suture starting first from the right angle and continuing across the vaginal cuff of the left angle taking care to ensure inclusion of the uterine vessel pedicles on each side for hemostasis. The last couple of stitches were used to bring the bladder peritoneum back down onto the cuff as well. Hemostasis was complete. There was no bleeding. There was no pathology needing attention. The pelvis was irrigated a final time assuring hemostasis and the procedure was terminated. The operative instruments were removed under direct vision as were the ports. The abdomen was evacuated and insufflating gas in the process of removing the ports. The skin incisions were stapled after first closing the fascia at the supraumbilical incision with [id number] suture of 2-0 Vicryl. Attention was now turned to the vaginal repairs. The patient was repositioned in the dorsal lithotomy position. A weighted speculum placed in posterior fornix of the vagina. The anterior vaginal wall was grasped with two Emeka clamps. The vaginal wall was opened in the midline that opening was continued to approximately a centimeter from the urethral meatus and almost to the apex of the vaginal cuff. The bladder wall was then carefully dissected off of muscularis of the vagina back to the pubic rami bilaterally. The endopelvic fascia was plicated with several sutures of 2-0 Vicryl elevating the bladder and lengthening the urethra. At this point, Dr. Bustamante assumed care of the patient, I remained to assist. Dr. Bustamante performed the pubovaginal sling and cystoscopy without event and he will dictate his portion of the procedure. On completion of Dr. Bustamante portion of the procedure, I resumed care of the patient, removed the redundant anterior vaginal muscularis mucosa and closed the vaginal wall with a running locked suture of 3-0 Vicryl Rapide. Good support was evident. Good hemostasis was achieved. The Ames catheter was left to dependent drainage and it was draining clear yellow urine. Posterior repair was now affected by placing Emeka clamps on the perineum and hymenal ring at 5 and 7 o'clock position and inverted triangle of skin was removed from the perineal body and upright triangle from the posterior vaginal floor that tissue appeared to contain a sinus tract. That tissue was sent to pathology for permanent section to rule out abnormal pathology. The rectovaginal space was entered sharply and dissected bluntly to the apex of the vagina. There was explored for an enterocele there being a small and it was obliterated with a 2-0 Vicryl pursestring suture with the enterocele with the rectovaginal space was obliterated with additional sutures of 2-0 Vicryl. The perineal body was restored with additional suture of 2-0 Vicryl and then redundant posterior vaginal muscularis mucosa was removed sharply. The vaginal wall was closed with a running locked suture of 2-0 Vicryl, starting from the apex down to the hymenal ring and then down on to the perineal body then back up subcutaneous to the hymenal ring where the suture was tied. There was some pulsatile bleeding near the apex of the posterior closure. A single suture in a yaxsub-aa-ywamj fashion of 2-0 Vicryl was placed to affect hemostasis. Hemostasis assured. The vagina was filled with Estrace vaginal cream and a pack of Kerlix gauze was placed. Ames catheter was left to dependent drainage. Digital rectal exam confirmed no stricture or stenosis of the rectum and no sutures into or through the rectal mucosa. Sponge and needle counts were correct. Estimated blood loss was approaching 300 mL. The patient tolerated the procedure well and was uneventfully awakened from her general anesthesia and transferred to recovery room in stable condition. Job ID: [id number] DocumentID: [id number] Dictated Date: 03/28/2019 15:25:06 Derrick Boat Lever Operator Date: 03/29/2019 00:29:43 Dictated By: TAMI BUCK MD
--- NOTE | 2019-03-29 02:28 | OPERATIVE REPORT ---
DATE OF SERVICE: 03/28/2019 PREOPERATIVE DIAGNOSIS: On my part, stress urinary incontinence. POSTOPERATIVE DIAGNOSIS: On my part, stress urinary incontinence. OPERATION PERFORMED: Pubovaginal sling and cystoscopy. SURGEON: Abraham Payton MD [employer]DLE SCHOOL PROFESSIONAL: Francisco Mueller MD COMPLICATIONS: None. DESCRIPTION OF PROCEDURE: Under satisfactory general anesthesia, the patient in extended lithotomy position after Dr. Mueller performed the first part of his surgery that he will dictate, we inserted a Ames catheter draining clear urine. I passed the Solyx device on both sides using the described technique. The sling was sitting nicely under the mid urethra with no tension, no twist. Passage of a curved hemostat easily between it and the underlying urethra. I went ahead and removed the Ames catheter to perform a cystoscopy to confirm the integrity of the bladder, ureteral orifices and urethra and no foreign body and position of the sling under the mid urethra. I left the bladder a half full to perform a manual Valsalva maneuver after removing the cystoscope and it was negative. I reinserted the Ames catheter. Estimated blood loss on my part negligible. Dr. Mueller proceeded with the rest of his surgery that he will dictate. Job ID: [id number] DocumentID: [id number] Dictated Date: 03/28/2019 14:47:09 Account Advisor Date: 03/28/2019 23:22:53 Dictated By: ABRAHAM PAYTON MD
[2019-03-29] MEDS: KETOROLAC 30 MG/ML VIAL IVP SCH (02:54)
[2019-03-29 03:00] VITALS: BP 118/81
[2019-03-29] MEDS: D5 LR IV SOLUTION 1,000 ML IV SCH (06:36)
--- NOTE | 2019-03-29 06:45 | NUR ---
Vag packing and nieves discontinued at this time. Small amount of rubra to old par, fresh pad placed under patient. Instructed patient to call for assistance when getting up to bathroom or chair for first time. Patient verbalized understanding, call light within reach.
[2019-03-29 07:55] VITALS: BP 128/76
[2019-03-29] MEDS ORDERED: DOCUSATE SODIUM 100 MG (COLACE) CAP PO SCH (09:00)
[2019-03-29] MEDS ORDERED: NORG1TAB14 PO (09:13)
--- NOTE | 2019-03-29 09:15 | Progress Note ---
Standard Progress Note Progress Notes/Assess & Plan Date Seen by a Provider: Mar 29, 2019 Time Seen by a Provider: 09:13 Progress/Assessment & Plan This patient is without complaint. She is tolerating oral intake well has good pain control. Patient denies chest pain, shortness of breath, denies headache, denies nausea vomiting, patient has not voided yet. We discussed surgical procedures performed including removal of her ovaries due to extensive endometriosis. Patient understands that she will need hormone replacement therapy as her ovaries are gone and she is now menopausal. We will prescribed oral contraceptive initially for hormone replacement. Vital Signs Date Time Temp Pulse Resp B/P (MAP) Pulse Ox O2 Delivery O2 Flow Rate FiO2 03/29/19 03:00 36.8 80 18 118/81 (93) 97 Nasal Cannula 1.00 03/28/19 23:20 36.9 83 18 123/85 (98) 99 Nasal Cannula 1.00 03/28/19 20:42 100 Nasal Cannula 1.00 03/28/19 20:15 36.5 85 18 131/90 (104) 100 Nasal Cannula 1.00 03/28/19 18:30 91 18 127/84 (98) 100 Nasal Cannula 2.00 03/28/19 18:00 89 18 125/87 (100) 100 Nasal Cannula 3.00 03/28/19 17:30 90 18 126/76 (93) 99 Nasal Cannula 3.00 03/28/19 17:00 36.7 84 16 125/87 (100) 99 Nasal Cannula 3.00 03/28/19 16:35 Nasal Cannula 3 03/28/19 16:35 36.3 20 120/88 (99) 97 Nasal Cannula 3 03/28/19 16:30 Nasal Cannula 3 03/28/19 16:20 20 129/84 (99) 94 OxyMask 4 03/28/19 16:15 OxyMask 4 03/28/19 16:10 20 129/84 (99) 98 OxyMask 4 03/28/19 16:00 OxyMask 4 03/28/19 16:00 20 122/88 (99) 99 OxyMask 4 03/28/19 15:50 20 132/89 (103) 97 OxyMask 6 03/28/19 15:45 OxyMask 6 03/28/19 15:40 20 124/87 (99) 99 OxyMask 6 03/28/19 15:32 OxyMask 6 03/28/19 15:32 36.3 20 130/90 (103) 100 OxyMask 6 03/28/19 10:00 36.4 69 18 140/95 (110) 98 Room Air I & O 03/29/19 07:00 Intake Total 3772 ml Output Total 1825 ml Balance 1947 ml Vital signs are stable. Patient is afebrile. The abdomen is benign. The surgical incisions are clean and dry. Extremities show no clubbing or cyanosis. There is no Homans sign. Assessment and plan postoperative day number 1 doing well. Plan is for routine convalescence care today and discharge home when she is ambulating, voiding, tolerating oral intake and has good pain control. Bladder trial is currently ongoing Final Diagnosis Uterovaginal prolapse dysfunctional bleeding pelvic pain and endometriosis TAMI BUCK MD Mar 29, 2019 09:15 POS
--- NOTE | 2019-03-29 11:37 | Progress Note - Urology ---
Progress Note-Urology Progress Notes/Assess & Plan Progress/Assessment & Plan HAS NOT VOIDED YET. OBSERVE. SCAN PRN Final Diagnosis JHOAN ABRAHAM PAYTON MD Mar 29, 2019 11:37 POS
[2019-03-29 12:25] VITALS: BP 142/77
[2019-03-29] MEDS ORDERED: IBUPROFEN 800 MG (MOTRIN) TAB PO ONE (12:28)
--- NOTE | 2019-03-29 13:29 | Anesthesia-General Post-Op ---
General Patient Condition Mental Status/LOC: Same as Preop Cardiovascular: Satisfactory Nausea/Vomiting: Absent Respiratory: Satisfactory Pain: Controlled Complications: Absent Post Op Complications Complications None Follow Up Care/Instructions Patient Instructions None needed. Anesthesia/Patient Condition Patient Condition Patient is doing well, no complaints, stable vital signs, no apparent adverse anesthesia problems. No complications reported per nursing. ROBERT ACEVEDO CRNA Mar 29, 2019 13:29 POS
[2019-03-29 17:00] VITALS: BP 142/77
--- NOTE | 2019-03-29 17:00 | NUR ---
1045 Up to BR - attempted to void - unsuccessful. Moderate vaginal bleeding with clots. 1140 Bladder scan 377ml of urine. Pt uncomfortable. Notified Dr Bustamante. 1150 Straight cath with 700 ml of urine. 1355 Up to BR to void 50mls 1500 Up to BR - voided 100ml 1515 Dr Bustamante notified of results of cath and voids. See nursing communication order. 1615 Up to BR - voided 150ml 1700 Up to BR - voided 100ml. Home instructions given. To go to ER if unable to empty bladder. Scripts called in to [facility]. Pt verbalized understanding. To exit via wheelchair. Accompanied by spouse, 2 daughters, and this nurse.
[2019-03-29] MEDS ORDERED: IBUPROFEN 800 MG (MOTRIN) TAB PO SCH (18:00)
== END 2019-03-29 17:00 | disposition home or self-care (01) ==
LOC: SDC 10:00 → WS 16:45 → SDC 03-29 17:00
PROVIDERS: ATTEND Obstetrics & Gynecology
DX: N72 Inflammatory disease of cervix uteri (principal); N88.8 Other specified noninflammatory disorders of cervix uteri; N80.0 Endometriosis of uterus; N73.6 Female pelvic peritoneal adhesions (postinfective); N83.201 Unspecified ovarian cyst, right side; N76.1 Subacute and chronic vaginitis; N39.3 Stress incontinence (female) (male); G89.29 Other chronic pain; R10.2 Pelvic and perineal pain; N93.8 Other specified abnormal uterine and vaginal bleeding; N81.4 Uterovaginal prolapse, unspecified; Z79.899 Other long term (current) drug therapy; G43.909 Migraine, unspecified, not intractable, without status migrainosus; K21.9 Gastro-esophageal reflux disease without esophagitis
CPT/HCPCS: 86850; 86900; 86901; 94664

== ENCOUNTER → 2019-09-29 | Outpatient (CLI) | payer BC ==
[~2019-09-29] MED LIST changes: -CLAR-19 PO; +CLAR-31 PO; +NORG1TAB14 PO; -OMEP20CA13 PO; +OMEP20CA18 PO; -TRAM50TA2 PO; +TRM50T PO
--- NOTE | 2019-09-29 09:34 | Diagnostic Imaging Report ---
PROCEDURE: US left lower extremity venous. TECHNIQUE: Multiple real-time grayscale images were obtained over the left lower extremity in various projections. Additional duplex Doppler and color Doppler images were also obtained. INDICATION: History of deep venous thrombosis in April 2019 now with new left calf pain. FINDINGS: There is echogenic chronic appearing thrombus in the mid left femoral vein, distal femoral vein and popliteal. This appears to be predominantly nonocclusive. There are however some collaterals in this region as well. Remainder of the left lower extremity venous system is widely patent. There are no abnormal fluid collections or masses. IMPRESSION: Examination is positive for chronic appearing deep venous thrombosis in the distal femoral vein extending into the popliteal vein. Dictated by: Dictated on workstation # [id number]
== END ==
LOC: RAD 07:34
PROVIDERS: ATTEND Family Medicine
DX: I82.512 Chronic embolism and thrombosis of left femoral vein (principal); I82.532 Chronic embolism and thrombosis of left popliteal vein

== ENCOUNTER 2020-08-31 05:38 | Outpatient (RCR) | payer BC ==
[~2020-08-31] VITALS: Ht 167.6 cm; Wt 83.9 kg
[~2020-08-31 05:38] MED LIST changes: -PANT40TA3 PO; +PANT40TA52 PO
[2020-08-31] MEDS ORDERED: ACET325T49 PO (12:27)
[2020-08-31] MEDS ORDERED: ASPI-789 PO (12:27)
[2020-08-31] MEDS ORDERED: LORA10TA7 PO (12:27)
[2020-08-31] MEDS ORDERED: CIME200T86 PO (12:27)
== END 2020-08-31 13:59 | disposition home or self-care (01) ==
LOC: PREOP 05:38 → EDSTATUS 09:30 → PREOP 13:59
PROVIDERS: ATTEND Surgery
DX: Z01.818 Encounter for other preprocedural examination (principal)

== ENCOUNTER 2020-09-07 11:20 | Day surgery (SDC) | payer BC ==
[~2020-09-07] VITALS: Ht 167 cm; Wt 84.0 kg
[~2020-09-07 11:20] MED LIST changes: +ACET325T49 PO; +ASPI-789 PO; +CIME200T86 PO
[2020-09-07] MEDS ORDERED: LACTATED RINGERS 1,000 ML IV ONE (11:28)
[2020-09-07] MEDS ORDERED: LACTATED RINGERS 1,000 ML IV STA (11:31)
[2020-09-07 11:40] VITALS: BP 166/106
[2020-09-07] MEDS ORDERED: HURRICAINE EXT TUBE (BENZOCAINE) XX PRN (11:45)
--- NOTE | 2020-09-07 12:16 | Progress Note-Pre Operative ---
Pre-Operative Progress Note H&P Reviewed The H&P was reviewed, patient examined and no changes noted. Date Seen by Provider: Sep 07, 2020 Time Seen by Provider: 12:16 Date H&P Reviewed: Sep 07, 2020 Time H&P Reviewed: 12:16 Pre-Operative Diagnosis: gerd, epigastric abd pain LEONORA VASQUES DO Sep 07, 2020 12:16
[2020-09-07] MEDS ORDERED: MIDAZOLAM 2 MG/2 ML (VERSED) VIAL ONE (13:09)
[2020-09-07] MEDS ORDERED: PROPOFOL INJECTION 50 ML IV ONE (13:09)
[2020-09-07] MEDS ORDERED: HURRICAINE EXT TUBE (BENZOCAINE) ONE (13:19)
[2020-09-07 13:50] VITALS: BP 138/83
--- NOTE | 2020-09-07 13:53 | Anesthesia-General Post-Op ---
MAC Patient Condition Mental Status/LOC: Same as Preop Cardiovascular: Satisfactory Nausea/Vomiting: Absent Respiratory: Satisfactory Pain: Controlled Complications: Absent Post Op Complications Complications None Follow Up Care/Instructions Patient Instructions None needed. Anesthesiology Discharge Order Discharge Order Patient is doing well, no complaints, stable vital signs, no apparent adverse anesthesia problems. No complications reported per nursing. JORDAN HOLCOMB CRNA Sep 07, 2020 13:53
[2020-09-07 13:55] VITALS: BP 122/86
--- NOTE | 2020-09-07 13:56 | Progress Note-Post Operative ---
Post-Operative Progess Note Surgeon (s)/Policy Officer (s) Surgeon LEONORA VASQUES DO Policy Officer: na Pre-Operative Diagnosis gerd, epigastric abd pain Post-Operative Diagnosis hiatal hernia, gastritis, erosive esophagitis Procedure & Operative Findings Date of Procedure 09/07/20 Procedure Performed/Findings egd c biopsies Anesthesia Type per clothing sorter Estimated Blood Loss Estimated blood loss (mL): none Specimens/Packing Specimens Removed antrum, erosive esophagitis LEONORA VASQUES DO Sep 07, 2020 13:56
[2020-09-07 14:00] VITALS: BP 119/83
[2020-09-07] MEDS ORDERED: SUCR1TAB36 PO (14:11)
--- NOTE | 2020-09-07 14:12 | Discharge Inst-Simple/Standard ---
Discharge Inst-Standard Patient Instructions/Follow Up Plan of Care/Instructions/FU: 2 weeks gem Activity as Tolerated: No Discharge Diet: Regular Diet LEONORA VASQUES DO Sep 07, 2020 14:12
[2020-09-07 14:20] VITALS: BP 138/99
[2020-09-07 14:40] VITALS: BP 138/99
--- NOTE | 2020-09-07 18:59 | OPERATIVE REPORT ---
DATE OF SERVICE: 09/07/2020 PREOPERATIVE DIAGNOSES: Gastroesophageal reflux disease, epigastric abdominal pain. POSTOPERATIVE DIAGNOSES: Gastritis, hiatal hernia, erosive esophagitis. PROCEDURE: EGD with biopsies. SURGEON: Leonora Gibbs DO ANESTHESIA: Per MUSIC THERAPY SPECIALIST. ESTIMATED BLOOD LOSS: None. COMPLICATIONS: None. INDICATIONS: The patient is a 40-year-old female with worsening GERD and epigastric abdominal pain. She understands risks and benefits of procedure and wished to proceed with procedure. Consent was signed in the chart. DESCRIPTION OF PROCEDURE: The patient was taken to the endoscopy suite, placed in left lateral recumbent position. Timeout was performed. Scope was inserted in mouth, down the esophagus, stomach and into the duodenum without difficulty. There were no polyps, masses or ulcerations within the duodenum. Scope was slowly retracted back to stomach where it was further insufflated. Changes of gastritis in the antrum were present. Biopsy of the antrum was obtained. Scope was retroflexed noting a hiatal hernia, no other pathology. Scope was returned to its normal position, slowly withdrawn to distal esophagus, changes of erosive esophagitis present to the distal esophagus. Biopsies were obtained. Scope was then slowly retracted back until completely removed noting no other pathology. The patient tolerated procedure well without any complications. She was taken to recovery room in stable condition. RECOMMENDATIONS: The patient will continue on Protonix. We will add Carafate 1 gram four times a day. We will await biopsy results for further recommendations. We will consider getting further recommendations pending pathology results. Job ID: [id number] DocumentID: [id number] Dictated Date: 09/07/2020 14:17:10 [employer] Date: 09/07/2020 18:57:52 Dictated By: LEONORA GIBBS DO
== END 2020-09-07 14:40 | disposition home or self-care (01) ==
LOC: ENDO 11:20
PROVIDERS: ATTEND Surgery
DX: K44.9 Diaphragmatic hernia without obstruction or gangrene (principal); K29.70 Gastritis, unspecified, without bleeding; K21.00 Gastro-esophageal reflux disease with esophagitis, without bleeding; I10 Essential (primary) hypertension; Z79.899 Other long term (current) drug therapy; Z90.710 Acquired absence of both cervix and uterus; Z90.49 Acquired absence of other specified parts of digestive tract
CPT/HCPCS: 88305

== ENCOUNTER → 2022-06-08 | Outpatient (CLI) | payer BC ==
[~2022-06-08] MED LIST changes: -ASPI-789 PO; +ASPI1TAB23 PO
--- NOTE | 2022-06-09 09:25 | Diagnostic Imaging Report ---
INDICATION: Routine screening. COMPARISON: 06/29/2017. TECHNIQUE: 2D and 3D bilateral screening mammography was performed with CAD. FINDINGS: Both breasts are heterogeneously dense, limiting the sensitivity of mammography. The parenchymal pattern is stable. No mass or malignant-appearing microcalcifications are seen. There are benign calcifications present. The axillae are unremarkable. IMPRESSION: No mammographic features suspicious for malignancy are identified. ACR BI-RADS Category 2: Benign findings. Result letter will be mailed to the patient. Note: At least 10% of breast cancer is not imaged by mammography. Dictated by: Dictated on workstation # [id number]
== END ==
LOC: RAD 15:15
PROVIDERS: ATTEND Family Medicine
DX: Z12.31 Encounter for screening mammogram for malignant neoplasm of breast (principal)
CPT/HCPCS: 77063; 77067

== ENCOUNTER → 2022-12-06 | Outpatient (CLI) | payer BC ==
--- NOTE | 2022-12-06 18:39 | Diagnostic Imaging Report ---
PROCEDURE: CT sinuses without contrast TECHNIQUE: Multiple contiguous axial images were obtained through the sinuses without the use of intravenous contrast. Coronal and sagittal reformations were then performed. Auto Exposure Controls were utilized during the CT exam to meet ALARA standards for radiation dose reduction. INDICATION: Chronic sinusitis COMPARISON: 07/19/2017 FINDINGS: The left maxillary sinus is completely opacified and there is mucosal thickening and opacification of some of the left ethmoid air cells. The right maxillary sinus and the frontal sinuses appear clear. Sphenoid sinuses are clear. The mastoid air cells appear clear. No acute osseous abnormality is seen. The globes are intact. The frontoethmoidal drainage pathway appears to be clear. The sphenoethmoid recess appears patent. IMPRESSION: 1. Complete opacification of the left maxillary sinus and some of the left ethmoid air cells, consistent with sinusitis. Neoplasm is in the differential but thought less likely. Dictated by: Dictated on workstation # [id number]
== END ==
LOC: RAD 17:27
PROVIDERS: ATTEND Otolaryngology Otolaryngology/Facial Plastic Surgery
DX: J32.9 Chronic sinusitis, unspecified (principal)
CPT/HCPCS: 70486